=== PATIENT | female | born 1940 | race African-American/Black ===

== ENCOUNTER 2016-10-10 11:21 | Inpatient (IN) | payer OTHER ==
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
--- NOTE | ~2016-10-10 | EKG ---
PATIENT: WAN BUSTAMANTE UNIT #: [id number] Ventricular Rate: 104 BPM Atrial Rate: 105 BPM QRS Duration: 78 ms Q-T Interval: 338 ms QTC Calculation(Bezet): 444 ms Calculated R [place]: 26 degrees Calculated T [place]: 1 degrees Diagnosis Line: Atrial fibrillation with rapid ventricular Diagnosis Line: response Diagnosis Line: Nonspecific T wave abnormality Diagnosis Line: Abnormal ECG Diagnosis Line: When compared with ECG of 10-OCT-2016 10:55, Diagnosis Line: Minimal criteria for Inferior infarct are no Diagnosis Line: longer Present Diagnosis Line: T wave inversion no longer evident in Inferior Diagnosis Line: leads Diagnosis Line: Nonspecific T wave abnormality has replaced Diagnosis Line: inverted T waves in Lateral leads Diagnosis Line: Confirmed by DAY PHILLIPS MD ([id number]) on 10/16/2016 Diagnosis Line: 10:34:34 PM INTERPRETING MD: ALAN GAVIN
--- NOTE | ~2016-10-10 | EKG ---
PATIENT: WAN BUSTMAANTE UNIT #: [id number] Ventricular Rate: 124 BPM Atrial Rate: 138 BPM QRS Duration: 74 ms Q-T Interval: 296 ms QTC Calculation(Bezet): 425 ms Calculated R [place]: 34 degrees Calculated T [place]: -69 degrees Diagnosis Line: Poor data quality, interpretation may be Diagnosis Line: adversely affected Diagnosis Line: Atrial fibrillation with rapid ventricular Diagnosis Line: response Diagnosis Line: Low voltage QRS Diagnosis Line: Possible Lateral infarct , age undetermined Diagnosis Line: ST and T wave abnormality, consider anterior Diagnosis Line: ischemia Diagnosis Line: Abnormal ECG Diagnosis Line: When compared with ECG of 16-OCT-2016 05:49, Diagnosis Line: (unconfirmed) Diagnosis Line: Vent. rate has increased BY 42 BPM Diagnosis Line: Borderline criteria for Lateral infarct are now Diagnosis Line: Present Diagnosis Line: Confirmed by DAY PHILLIPS MD ([id number]) on 10/16/2016 Diagnosis Line: 11:42:36 PM INTERPRETING MD: ALAN GAVIN
--- NOTE | ~2016-10-10 | OR ---
Unit #: [id number] #: [id number] Patient: WAN BUSTAMANTE [id number] [address] [place], [place] [address] [id number] I MR#: [id number] NAME: WAN BUSTAMANTE ROOM: 575 Date of Procedure: 10/19/2016 Admission Date: 10/10/2016 Surgeon: Harley Crenshaw M.D. : 1940 Attending Physician: Harish Salas M.D. OPERATIVE REPORT PROCEDURES PERFORMED 1. Ultrasound-guided access of left common femoral artery. 2. Aortogram. 3. Right lower extremity angiogram second-order catheterization. 4. Percutaneous closure of left common femoral artery with Mynx device. INDICATIONS FOR PROCEDURE This is a 76-year-old female, who has had a nonhealing wound of her right great toe for a couple of weeks. There is some dry gangrene and tissue loss. She had preoperative ankle-brachial indices, which demonstrated her right ankle ZHEN was 0.39. We were asked by her primary service for evaluation for peripheral vascular disease. I talked to the patient about the risks and benefits of an angiogram. The risks include, but not limited to, contrast-induced nephropathy, access site bleeding, injury to blood vessels, and need for further procedures. The benefit of the procedure would be to evaluate her circulation, and if we can identify a treatable stenosis or occlusion, revascularize her leg so as to allow for adequate wound healing. She expressed understanding and elected to proceed. PREOPERATIVE DIAGNOSIS Right lower extremity atherosclerosis with gangrene. POSTOPERATIVE DIAGNOSIS Right lower extremity atherosclerosis with gangrene. ESTIMATED BLOOD LOSS 10 mL. FINDINGS 1. Patent bilateral renal arteries. 2. Infrarenal abdominal aortic aneurysm approximately 4.5 cm. 3. No significant iliac artery occlusion or stenosis. 4. Flush SFA occlusion on the right side, with narrow profunda artery proximally. There is distal SFA/above knee popliteal artery reconstitution, no significant popliteal disease, anterior tibial artery is not well visualized. 5. Tibioperoneal trunk is patent, however, approximately 80% stenosis, PT and peroneal arteries appear free of disease, and posterior tibial artery is the dominant runoff to the foot with lateral plantar runoff. Dorsalis pedis artery reconstitutes at the distal anterior tibial artery. Unit #: [id number] #: [id number] Patient: WAN BUSTAMANTE DESCRIPTION OF TECHNIQUE After informed consent was obtained, the patient was brought to the operating room table and placed in supine position. The patient's bilateral groins were prepped and draped in standard fashion. At this point in time, a time-out procedure was performed. Using ultrasound-guided access, identified the left femoral bifurcation, as well as the left common femoral artery. I confirmed the position with fluoroscopy. I then injected 1% lidocaine into the skin. I then accessed the left common femoral artery with a micropuncture needle using ultrasound guidance. I then advanced a micro Glidewire and confirmed my position under fluoroscopy. I then exchanged out my micro needle for a 4-Faroese micro-sheath catheter using Seldinger technique. I then advanced a Agile Groupson wire up into the aorta. I then exchanged out my 4-Faroese micro sheath catheter for a 5-Faroese sheath. I then advanced an Omni Flush catheter up into the level of L1 and L2, and shot a 20 mL/sec per 20 mL total aortogram. This demonstrated patent bilateral renal arteries, patent inferior mesenteric artery, and also detected of what appears to be a 4.4 cm infrarenal abdominal aortic aneurysm. There was no significant disease of the right iliac artery in terms of stenosis or occlusion. It did appear tortuous. I then went up and over the aortic bifurcation with a stiff angled Glidewire, and advance my Omni Flush catheter into the right external iliac artery, where it was engaged. I then performed a 4 mL/second for 40 mL total bolus keisha of the right lower extremity. This demonstrated that the right SFA was occluded at its origin with the femoral artery. The profunda artery was seen, however, there appeared to be a tight stenosis of its proximal aspect. The distal SFA/above knee popliteal artery reconstituted with no significant disease. There did appear to be a patent tibioperoneal trunk, but again what it seem to be 70% to 80% stenosis of the proximal aspect of the tibioperoneal trunk. The posterior tibial artery in the peroneal artery were free of disease. In the posterior tibial artery, there was a predominant runoff down to the foot, with lateral plantar runoff. The anterior tibial artery did not have brisk flow, though it did not appear occluded either. The dorsalis pedis artery reconstituted at the level of the ankle. To obtain better evaluation of the pedal outflow, I performed a magnified view in a 4 mL/second for 12 mL total bolus keisha of the right foot. This again confirmed that the posterior tibial artery with this plantar runoff as a predominant runoff to the foot, and reconstitution of the dorsalis pedis artery. There was good circulation to the forefoot and first toe. At this point, I felt like the patient would best benefit from operative procedure, and not endovascular intervention. The Omni Flush catheter was removed over a wire, I performed a left angled oblique femoral bifurcation angiogram, which demonstrated an adequate puncture for percutaneous closure. I then deployed a 5-Faroese Mynx device and held additional manual pressure for 5 minutes for adequate hemostasis. Total contrast used was 35 mL of Visipaque, fluoro time was 4.8 minutes. At the end of the case, all counts were correct and I was present for the entire duration of the procedure. Dictated by... John Dinh/jan Unit #: [id number] #: [id number] Patient: WAN BUSTAMANTE TD: 10/20/2016 03:05 JOB #: [id number] OPERATIVE REPORT Page 1 of 1 X X PROCEDURE OPERATIVE NOTE
--- NOTE | ~2016-10-10 | XA166 ---
[facility] A Service of [facility] RADIOLOGY TEXT RESULTS PATIENT: WAN BUSTAMANTE LOCATION: [facility] 575-01 : [birth year] UNIT #: [id number] AGE: [address]: Dante Cochran MD SEX: F ORDER DR: [id number] [facility] [address] [place], [place] [address] [id number] MR#: [id number] Acc #: [id number] NAME: WAN BUSTAMANTE : 1940 SEX: F STUDY DATE/TIME: 10/23/2016 13:24 UNIT: [facility] ROOM: [facility] STUDY DESCRIPTION: XA PICC Line Placement WO Port Attending Physician: Dante Cochran M.D. Ordering Physician: Dante Cochran M.D. Primary Care Physician: Generic Doctor Not In System MEDICAL IMAGING REPORT This report is preliminary unless electronic signature is present EXAM Left-sided PICC line under ultrasound and fluoroscopy HISTORY No venous access. PRE-PROCEDURE The procedure was explained to the patient and/or patient service center representative including risks, benefits, potential complications and potential for alternative forms of treatment. Informed consent was obtained, and prior to initiating the procedure a formal timeout procedure was performed. PROCEDURE Using full standard sterile barrier technique, including caps, gowns, gloves, masks, as well as sterile skin preparation and standard sterile draping, the left arm was prepped and draped in the usual fashion, and real-time sterile ultrasound guidance was used to localize an arm vein and to confirm vessel patency. A hard copy ultrasound image was recorded. After local anesthesia with 1% Xylocaine, the left brachial vein was punctured using real-time sterile ultrasound guidance, and an 0.018 guidewire was advanced into the superior vena cava, using fluoroscopic guidance. A 5-Cymraes dual-lumen PICC was then measured and deployed with the tip positioned in the superior vena cava. The position of the line was documented with a radiographic image. The line was secured in place with an adhesive dressing and an antibiotic patch was applied. Total fluoro time was 0.2 minutes. A single fluoroscopic spot image was obtained. Total exposure 6 mGy air kerma standard. IMPRESSION 1. Successful placement of a 5-Cymraes dual-lumen PowerPICC via the left arm under ultrasound and fluoroscopic guidance. The tip of the PICC is in good position in the superior vena cava. [facility] A Service of [facility] RADIOLOGY TEXT RESULTS PATIENT: WAN BUSTAMANTE LOCATION: [facility] 575-01 : 42 UNIT #: [id number] AGE: [address]: Dante Cochran MD SEX: F ORDER DR: 2. A single fluoroscopic spot image was obtained. Dictated by... Stanton Sifuentes M.D. THIS IS AN ELECTRONICALLY VERIFIED REPORT Stanton Sifuentes M.D. at 10/25/2016 2:20 PM ALAN/kirk TD: 10/24/2016 00:07 JOB #: [id number] MEDICAL IMAGING REPORT Page 1 of 1 COPY
--- NOTE | ~2016-10-10 | CO ---
Unit #: [id number] #: [id number] Patient: SANDHYA BUSTAMANTE [id number] [address] [address] [id number] Babar MR#: [id number] NAME: SANDHYA BUSTAMANTE ROOM: [facility] Age: 76 Sex: F Admission Date: 10/10/2016 : 1940 Attending Physician: Rosemarie Fernando M.D. Primary Care Physician: Jessica Doctor Not In System Consultation Date: 10/10/2016 CONSULTATION REPORT REASON FOR CONSULT Renal insufficiency, hyponatremia. Thank you very much for having us see this patient in consultation. Ms. Sandhya Bustamante is a 76-year-old female who presented to the hospital with four to five day weakness, cough x2 days, nonproductive, decreased appetite although no nausea, vomiting, diarrhea. The patient was noted to have an increased BUN and creatinine of 54 and 2.2 with a sodium of 125. Because of this, I was asked to see the patient. The patient states she has never had any problems with her kidneys that she knows of. 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 PAST MEDICAL HISTORY 1. History of atrial fibrillation, on chronic Coumadin. 2. History of hypertension. 3. History of diabetes mellitus. 4. History of hyperlipidemia. 5. History of CVA. MEDICATIONS Medicines currently ordered were: 1. Vancomycin. 2. Neurontin. 3. Zosyn. 4. Lopressor. 5. Iron pill. 6. Aspirin. At home, she was on: 1. Lipitor. 2. Insulin. 3. Neurontin. 4. Potassium pill. 5. Lisinopril. 6. Lasix. 7. Hydrochlorothiazide. REVIEW OF SYSTEMS As mentioned in the HPI. She denies any fevers, chills, visual problems, sinus problems. No hemoptysis. No neck pain, neck stiffness. No chest pain, chest heaviness, palpitations. No severe abdominal pain, nausea, vomiting, diarrhea. No urinary symptoms, starting, stopping or burning. No significant swelling. No recent seizures, strokes or skin rashes. Unit #: [id number] #: [id number] Patient: SANDHYA BUSTAMANTE FAMILY HISTORY Noncontributory. SOCIAL HISTORY She currently has no smoking, no alcohol intake. PHYSICAL EXAMINATION GENERAL: She is alert. VITAL SIGNS: Temperature is 98,4 pulse 94 to 166, blood pressure 81 to 122/50s to 90s. HEENT: She is normocephalic, atraumatic. Her pupils are equal, round, reactive to light. Her extraocular muscles are intact. Hearing appears to be normal. Mouth is clear. No erythema, no exudate. NECK: Supple. No JVD, no adenopathy. CARDIAC: She has an irregular rhythm without a rub. No S3 or S4. LUNGS: Clear bilaterally. No wheezes, rhonchi or rales. ABDOMEN: Bowel sounds positive. Nontender, soft. No masses felt. No hepato or organomegaly noted. EXTREMITIES: She has no lower extremity swelling. Her pulses are intact in upper and lower extremities. JOINTS: No joint pain or joint swelling. SKIN: No rashes. NEUROLOGICAL: Appears intact to both motor and sensory grossly. : Deferred. DIAGNOSTIC STUDIES LABORATORY DATA: She had a sodium of 125, potassium 2.9, chloride 79, bicarb is 27, BUN of 54, creatinine 2.2, glucose 378. Albumin is 3.2, alkaline phos. 169, TSH 198. INR is 1.5. Hemoglobin is 12.4, white count 13,100, platelets 304,000. IMAGING: Her chest x-ray showed mild cardiomegaly but no infiltrate. There was an 8 x 9 mm nodular density in the left lower lobe of the left lung. CT of the chest without contrast showed no acute findings. No infiltrates or areas. She was noted to have a 4 cm ascending thoracic aorta, apparently unchanged from 2010 study. ASSESSMENT AND PLAN 1. Renal failure: Assume acute renal failure. The patient was noted in March 2012 to have of 0.9. I don't have anything up until presentation here. Certainly her acute renal failure could be related to multiple etiologies. I don't have a urine on her at this time. Will check a urinalysis to see if she has any active urinary sediment. Will check a renal ultrasound to rule out obstruction or any other gross abnormalities. Agree with holding her Lasix, hydrochlorothiazide and her lisinopril at this time. Certainly, she could have just volume depletion from multiple diuretics, hyperglycemia with osmotic diuresis with normal saline. Will increase rate to 125 mL/hour. Will check again urine studies, renal ultrasound. Depending on what all this shows and how she does with fluid, depending on what further workup and treatment. 2. Hyponatremia: The patient appears to have probably a hypovolemic hyponatremia. Again, probably a combination of volume depletion with osmotic diuresis. Decrease p.o. intake as well as thiazide diuretic. Unit #: [id number] #: [id number] Patient: SANDHYA BUSTAMANTE Agree with IV fluids as mentioned above. Will check a.m. cortisol level. Will check urine osmolarity, random urine sodium and will follow. 3. Hyperglycemia per primary. 4. Possible sepsis, increased WBC: Workup and treatment per primary. Was started on vanc and Zosyn. Certainly, if her renal function doesn't improve or worsen, we may need to consider changing or vancomycin to another agent. For now, will not DC that. Dictated by... Nazario Kirk M.D. ALVIN/lucy TD: 10/12/2016 07:17 JOB #: [id number] CONSULTATION REPORT Page 1 of 1 X Werner Kirk MD X CONSULTATION REPORT
--- NOTE | ~2016-10-10 | US89 ---
[facility] A Service of [facility] & [facility] RADIOLOGY TEXT RESULTS PATIENT: WAN BUSTAMANTE LOCATION: [facility] 575-01 : 42 UNIT #: [id number] AGE: [address]: Harish Salas MD SEX: F ORDER DR: [id number] [facility] [address] [place], [place] [address] [id number] I MR#: [id number] #: [id number] NAME: WAN BUSTAMANTE : 1940 SEX: F STUDY DATE/TIME: 10/16/2016 9:54 UNIT: [facility] ROOM: [facility] STUDY DESCRIPTION: US Lower Ext Arterial Exam Attending Physician: Harish Salas M.D. Ordering Physician: Jf Montes M.D. Primary Care Physician: Generic Doctor Not In System MEDICAL IMAGING REPORT This report is preliminary unless electronic signature is present EXAM Ankle-brachial indices, 10/16/2016. HISTORY Wounds, bilateral lower extremities. FINDINGS The right brachial artery pressure is 160. The right dorsalis pedis pressure is 61 with an ankle-brachial index of 0.38. The right posterior tibial pressure is 62, with an ankle-brachial index of 0.39. The right digital pressure cannot be obtained because there is an open wound. The left brachial artery pressure is 137. The left dorsalis pedis pressure is 57, with an ankle-brachial index of 0.36. The left posterior tibial pressure is 57, with an ankle-brachial index of 0.36. The left digital pressure is 39, with a toe-brachial index of 0.24. Wave forms of the right and left posterior tibial wave forms are monophasic. Tracings of the right and left ankle are blunted, severely. IMPRESSION 1. The right ZHEN is 0.39, consistent with advanced arterial insufficiency. 2. The right TBI could not be obtained because of a wound, but waveforms and tracings are severely abnormal. 3. The left ZHEN is 0.36, consistent with advanced arterial insufficiency. 4. The left TBI is severely abnormal, and unreliable for adequate wound healing. Dictated by... [facility] A Service of [facility] RADIOLOGY TEXT RESULTS PATIENT: WAN BUSTAMANTE LOCATION: [facility] 575-01 : 42 UNIT #: [id number] AGE: [address]: Harish Salas MD SEX: F ORDER DR: Harley Crenshaw M.D. THIS IS AN ELECTRONICALLY VERIFIED REPORT Harley Crenshaw M.D. at 10/17/2016 2:21 PM Lalo TD: 10/16/2016 16:47 JOB #: [id number] MEDICAL IMAGING REPORT Page 1 of 1 COPY
--- NOTE | ~2016-10-10 | CR63 ---
[facility] A Service of [facility] RADIOLOGY TEXT RESULTS PATIENT: WAN BUSTAMANTE LOCATION: [facility] : 42 UNIT #: [id number] AGE: [address]: Gregor Corral MD SEX: F ORDER DR: [id number] [facility] [address] [place], [place] [address] [id number] I MR#: [id number] Acc #: [id number] NAME: WAN BUSTAMANTE : 1940 SEX: F STUDY DATE/TIME: 10/30/2016 11:40 UNIT: [facility] ROOM: [facility] STUDY DESCRIPTION: CR Chest 2 View Attending Physician: Dante Cochran M.D. Ordering Physician: Jason Mcclain M.D. Primary Care Physician: No Primary Care Physician MEDICAL IMAGING REPORT This report is preliminary unless electronic signature is present EXAM Two views chest, 10/30/2016. HISTORY Short of air with activity. Atrial fibrillation, weakness. Began 10/10. Diabetes. TECHNIQUE AP lordotic view of chest presented. COMPARISON STUDIES 10/10/2016 FINDINGS Left upper extremity approach PICC terminates in superior vena cava. Stable cardiac enlargement given lower lung volumes. Central bronchovascular crowding secondary to the lower lung volumes. Mildly increased peribronchial markings centrally. Nonspecific appearance which could be a reflection of mild central interstitial edema, reactive airway disease, or bronchitis. Weight should be given the clinical assessment. Linear densities at the bilateral lung bases favored to be atelectatic in nature given the lower lung volumes. There is no dense airspace disease. No definite pleural effusion or pneumothorax. No suspicious nodule. Marked degenerative change in the bilateral shoulders. Stable. Dictated by... Stanton De La Paz M.D. THIS IS AN ELECTRONICALLY VERIFIED REPORT [facility] A Service of [facility] RADIOLOGY TEXT RESULTS PATIENT: WAN BUSTAMANTE LOCATION: [facility] : 42 UNIT #: [id number] AGE: [address]: Gregor Corral MD SEX: F ORDER DR: Stanton De La Paz M.D. at 10/31/2016 2:37 PM SHAWN/elsie TD: 10/30/2016 16:46 JOB #: [id number] MEDICAL IMAGING REPORT Page 1 of 1 COPY
--- NOTE | ~2016-10-10 | EKG ---
PATIENT: WAN BUSTAMANTE UNIT #: [id number] Ventricular Rate: 149 BPM Atrial Rate: 144 BPM QRS Duration: 98 ms Q-T Interval: 260 ms QTC Calculation(Bezet): 409 ms Calculated R [place]: 40 degrees Calculated T [place]: -54 degrees Diagnosis Line: Atrial fibrillation with rapid ventricular Diagnosis Line: response Diagnosis Line: Cannot rule out Inferior infarct , age Diagnosis Line: undetermined Diagnosis Line: ST and T wave abnormality, consider lateral ischemia Diagnosis Line: Abnormal ECG Diagnosis Line: No previous ECGs available Diagnosis Line: Confirmed by ENIO COX MD ([id number]) on 10/10/2016 Diagnosis Line: 9:23:04 PM INTERPRETING MD: KENNY GAVIN
--- NOTE | ~2016-10-10 | DS ---
Unit #: [id number] #: [id number] Patient: WAN BUSTAMANTE [id number] [address] [place], [place] [address] [id number] I MR#: [id number] NAME: WAN BUSTAMANTE ROOM: [facility] Age: 76 Sex: F Admission Date: 10/10/2016 : 1940 Discharge Date: 11/01/2016 Attending Physician: Gregor Corral M.D. Primary Care Physician: Generic Doctor Not In System DISCHARGE SUMMARY ADDENDUM This is a continuation of a job that was accidentally disconnected and that job number was [id number]. PROCEDURES PERFORMED Upper GI endoscopy as well as push enteroscopy with biopsy. DIAGNOSTIC STUDIES LABORATORY: Most recent WBC 6.0, hemoglobin 8.6, hematocrit 27.1, platelet count 205,000 and PT 30.7, INR 2.8 and PT 37.5, INR 3.4, sodium 141, potassium 3.8, chloride 108, CO2 28, glucose 122, BUN 7, creatinine 1.1, calcium 8.3. Accu-Cheks over the past 24 hours are 123, 110, 170, 172, 135, 144. Blood culture collection date 10/23/16 x2, no growth after five days. Final blood cultures 10/10/16 x2, no growth after five days. Right toe wound culture collection date 10/10/16, final Staph aureus 4+. IMAGING: Most recent studies: On 10/30/16 bilateral lower extremity ZHEN. Impression: No arterial insufficiency of the right lower extremity based on ZHEN. Severe arterial insufficiency of the left lower extremity with diminished perfusion of the first toe consistent with small vessel disease. On 10/30/16 right lower extremity grafts venous ultrasound. Impression: Limited evaluation of right bqmtasa-mt-ndezui artery bypass where visualized segments appear widely patent with excellent runoff into the posterior tibial artery. On 10/30/16 two-view chest x-ray report. Impression: Left upper extremity approach PICC terminates in superior vena cava. Stable cardiac enlargement given lower lung volumes. Central bronchovascular crowding secondary to the lower lung volumes. Mildly increased peribronchial markings centrally. Nonspecific appearance which could be a reflection of mild central interstitial edema, reactive airway disease or bronchitis. Weight should be given the clinical assessment. Linear densities at the bilateral lung bases favored to be atelectatic in nature given the lower lung volumes. No dense airspace disease. No definite pleural effusion or pneumothorax. No suspicious nodule. Marked degenerative change in the bilateral shoulders, stable. On 10/24/16 aortic ultrasound. Impression: No significant aneurysmal dilatation of the abdominal aorta identified by ultrasound. Unit #: [id number] #: [id number] Patient: WAN BUSTAMANTE On 10/19/16 bilateral lower extremity vein mapping. Impression: Right great saphenous vein appears to be of adequate size for conduit from the upper proximal portion to the lower proximal portion. The left great saphenous vein does not appear to be of adequate size for a bypass conduit. On 10/16/16 ankle-brachial indices: The right ZHEN is 0.39, consistent with advanced arterial insufficiency. The right TBI could not be obtained because of a wound but waveforms and tracings are severely abnormal. The left ZHEN is 0.36, consistent with advanced arterial insufficiency. The left TBI is severely abnormal, and unreliable for adequate wound healing. On 10/10/16 bilateral renal ultrasound. Impression: Kidneys are normal in size and there is no hydronephrosis. On 10/10/16 CT of the chest without contrast. Impression: No acute findings. No pulmonary infiltrates. Aneurysmal dilatation of the ascending thoracic aorta measuring up to 4.4 cm but this is unchanged when compared to a study from November 20, 2009. Enlargement of the main pulmonary artery is also stable when compared to that study. Heterogeneous appearance to the thyroid gland; similar findings present on the prior study from 2009. On 10/10/16 three views of the right foot. 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 No acute findings. CONDITION ON DISCHARGE Stable. DISPOSITION [facility] where the patient has been accepted and a bed is available today. ALLERGIES No known medication allergies. DISCHARGE MEDICATIONS Per discharge medication reconciliation form. DIET Healthy heart consistent carbohydrate diet. HOSPITAL COURSE The patient is a 76-year-old -[place] female who presented to [facility] on the date of admission with complaint of weakness and no appetite. In the emergency department the patient's pulse was noted to be 166 with other vital signs stable. EKG showed afib with RVR and rate of 149 beats per minute. She was treated with IV metoprolol and admitted to the hospital for further evaluation and management of her condition. Please refer to the history and physical report for complete details. Patient was evaluated by Dr. Mcclain and Dr. Candelaria from [facility]. Patient was diagnosed with afib with RVR, likely permanent according to the patient's history. Patient also was noted to have a mildly elevated troponin of 0.05. Coumadin management throughout the hospital course was per the Cardiology service. Per review of the cardiology note the patient's [id number] score is 4 which they felt indicated the need for chronic anticoagulation if possible. Patient was Unit #: [id number] #: [id number] Patient: WAN BUSTAMANTE also noted to experience hypotension and received IV fluid boluses. Two-D echocardiogram was performed which revealed LV systolic function lower limit of normal with visually estimated EF of 50%, cweo-js-aocgfihx aortic stenosis, moderate aortic regurgitation, mild tricuspid regurgitation, right ventricular systolic pressure of 36 mmHg with no evidence of any pericardial effusion. Nephrology was consulted to assist in evaluation and management for acute kidney injury. The SWATHI was felt to likely be a result of secondary hypotension and hypovolemia. The patient's potassium was repleted and is stable at this time. Patient was noted to be anemic and Dr. Arnold Turpin from gastroenterology consulted to evaluate for the possibility of chronic GI blood loss. He felt that it would be prudent to proceed with upper GI endoscopy and push enteroscopy. Per review of [facility], patient underwent an upper GI endoscopy as well as push enteroscopy with biopsy. Postoperative diagnoses: Mild prepyloric antral erosive gastritis. Mild focal patchy erosive duodenitis. Rest of examination up to proximal jejunum was normal. Biopsies obtained from the antrum for CLOtest. Patient was evaluated by the registered radiation therapist with recommendation for healthy heart consistent carbohydrate diet as tolerated. The patient is tolerating food and fluids well at this time. On 10/10/16 the patient was noted to have total ulceration and separation of the nail plate with an open wound anteriorly with separation extending down to the phalanx and associated ischemic changes of the skin of the right distal toe which was consistent with early wet gangrene. Patient was evaluated by Dr. Montes. Patient underwent a vascular workup with results as dictated above. Drs. Aguilar and Flower evaluated the patient and she ultimately underwent revascularization procedure to the right lower extremity as well as amputation of the right first great toe. Patient has been evaluated with right lower extremity duplex venous Doppler and ZHEN/TBI studies yesterday with results as dictated above. Patient has been evaluated by Vascular Surgery and cleared for discharge today. She will need a followup with Vascular Surgery per recommendations of Dr. Aguilar. Patient has also exhibited anemia. She received a total of three units of packed red blood cells during the hospitalization. Most recent hemoglobin is as dictated above. She has no active bleeding and is stable from that standpoint today. She continues on chronic Coumadin therapy. Her INR is therapeutic at 3.4 today. Her Coumadin is being held today by Dr. Candelaria. She will need a CBC and PT/INR in the a.m. at rehab with results called to the physician at the facility for further Coumadin management orders. The patient has been hospitalized since 10/10/16 and although she has participated with physical therapy at intervals she has become debilitated. She has been working with physical therapy and occupational therapy as much as possible based on her physical condition and procedures. She is at a point where she will be able to participate in rehab services at [facility]. DISCHARGE MEDICATIONS 1. Acetaminophen 325 mg tab one p.o. q.6 h. p.r.n. mild pain or temperatures greater than 100.4. 2. Flonase 0.05% nasal spray two sprays nasally daily. 3. Neurontin 300 mg p.o. t.i.d. 4. Claritin 10 mg p.o. daily. 5. Lanoxin 0.125 mg p.o. at noon. 6. Lopressor 100 mg p.o. b.i.d. Unit #: [id number] #: [id number] Patient: WAN BUSTAMANTE 7. Colace 100 mg p.o. b.i.d. 8. Furosemide 40 mg p.o. b.i.d. 9. Low dose sliding scale NovoLog insulin protocol with Accu-Cheks per MD order per med rec. 10. Ferrous gluconate 324 mg p.o. daily. 11. Fatty acids/fish oil 1000 mg p.o. b.i.d. 12. Refresh ophthalmic solution one drop both eyes daily. 13. Aspirin 81 mg p.o. daily. 14. Percocet 5/325 mg tab one to two tabs p.o. q.4 h. p.r.n. moderate pain. Prescription written by Dr. Banda, #15 no refills. 15. Klor-Con 20 mEq p.o. daily. 16. Sildenafil citrate 20 mg tab one p.o. t.i.d. before meals. 17. Vitamin D2 50,000 units p.o. weekly. 18. Nafcillin 1 g IV q.6 h. Stop date 11/02/16 at [id number]. DISCHARGE INSTRUCTIONS 1. Patient is to follow up with Dr Candelaria as scheduled in the office on December 28, 2016 at 10:30 a.m. 2. Patient is to follow up with primary care physician five to seven days after discharge from rehab. 3. Patient is to follow up with Dr. Aguilar per his recommendations which will need to be clarified prior to discharge today. 4. PT/INR, CBC to be collected at rehab tomorrow with results called to the attending physician at the snf for further Coumadin management and PT/INR orders. Please note this patient had an extensive and complex hospital course. She was here from 10/10/16 until today. Please refer to the entire medical record for details of her care. Dictated by... Aminta Carey A.P.R.N. for John Buckner/edgar TD: 11/01/2016 15:38 JOB #: [id number] DISCHARGE SUMMARY Page 1 of 1 X Aminta Carey APRN X DISCHARGE SUMMARY
--- NOTE | ~2016-10-10 | CR72 ---
[facility] A Service of [facility] RADIOLOGY TEXT RESULTS PATIENT: WAN BUSTAMANTE LOCATION: [facility] 575-01 : 42 UNIT #: [id number] AGE: [address]: Rosemarie Fernando MD SEX: F ORDER DR: [id number] [facility] [address] [place], [place] [address] [id number] MR#: [id number] #: [id number] NAME: WAN BUSTAMANTE : 1940 SEX: F STUDY DATE/TIME: 10/10/2016 11:07 UNIT: [facility] ROOM: STUDY DESCRIPTION: CR Chest Single View Portable Attending Physician: Jf Pittman M.D. Ordering Physician: Jf Pittman M.D. Primary Care Physician: Generic Doctor Not In System MEDICAL IMAGING REPORT This report is preliminary unless electronic signature is present EXAM Portable chest x-ray 10/10/2016 HISTORY Short of air, 5-6 days duration. Weakness, diabetes. TECHNIQUE AP radiograph chest is presented COMPARISON 03/12/2011 FINDINGS The heart is mildly enlarged. Stable. Mildly tortuous descending thoracic aorta. Stable. The lungs are somewhat hyperinflated. Please correlate with any known history of underlying chronic airway disease. There is no indication of pneumonia or edema. No pleural effusion or pneumothorax. 8-9 mm nodular density superimposed over the left lower lung zone along the left heart border. No corresponding finding on the prior plain radiograph or prior CT examination in 2009. This is not in the anticipated location of nipple shadow artifact. Its exact etiology is unclear. It is possible this represents an area of atelectasis. Neoplastic pulmonary nodule is to be excluded. CT examination recommended. Preferably with intravascular contrast if the patient is a candidate. Degenerative changes in the spine and shoulders. Shoulder degenerative changes significantly progressed in the interval from 2010. There is no acute-appearing bony abnormality. Dictated by... Stanton De La Paz M.D. [facility] A Service of [facility] RADIOLOGY TEXT RESULTS PATIENT: WAN BUSTAMANTE LOCATION: [facility] [place] [facility] 575-01 : 42 UNIT #: [id number] AGE: [address]: Rosemarie Fernando MD SEX: F ORDER DR: THIS IS AN ELECTRONICALLY VERIFIED REPORT Stanton De La Paz M.D. at 10/11/2016 5:56 PM SHAWN/kirk TD: 10/10/2016 13:04 JOB #: [id number] MEDICAL IMAGING REPORT Page 1 of 1 COPY
--- NOTE | ~2016-10-10 | ST ---
Unit #: [id number] #: [id number] Patient: WAN BUSTAMANTE [id number] [facility]. [place], [place] [address] [id number] I MR#: [id number] NAME: WAN BUSTAMANTE : 1940 SEX: F STUDY DATE/TIME: 10/13/2016 UNIT: [facility] ROOM: 575 STUDY DESCRIPTION: Lexiscan stress test Attending Physician: Harish Salas M.D. Primary Care Physician: Generic Doctor Not In System CARDIOLOGY REPORT PROCEDURE PERFORMED Lexiscan Cardiolite stress test. REPORT Baseline EKG - Atrial fibrillation with ventricular rate 96 beats per minute, questionable Q wave in V1. Lexiscan is a 4-minute test with Lexiscan being injected within the first minute, followed by Cardiolite. FINDINGS 1. EKG during the test was equivocal to baseline. No acute ischemic changes. 2. The patient had no complaints of chest pain, palpitations or dizziness. Had increased shortness of breath and fatigue, which resolved in recovery phase. 3. Maximum heart rate response was 144 beats per minute with a maximum blood pressure response of 130/80 mmHg. 4. Cardiolite was injected after Lexiscan within the first minute of the test. Radionuclide tests pending. Please correlate with nuclear images. Dictated by... Kayaln Dejesus A.P.R.N. for John Larkin/nas TD: 10/13/2016 11:44 JOB #: [id number] CARDIOLOGY REPORT Page 1 of 1 X Kaylan Dejesus APRN CARDIOLOGY REPORT
--- NOTE | ~2016-10-10 | OR ---
Unit #: [id number] #: [id number] Patient: WAN BUSTAMANTE [id number] [place], [place] [address] [id number] I MR#: [id number] NAME: WAN BUSTAMANTE ROOM: [facility] Date of Procedure: 10/15/2016 Admission Date: 10/10/2016 Surgeon: Arnold Turpin M.D. : 1940 Attending Physician: Harish Salas M.D. OPERATIVE REPORT ADDITIONAL ATTENDING PHYSICIAN Jamey Sands, and Harish Salas M.D. PREOPERATIVE DIAGNOSES Anemia most likely of chronic iron deficiency or gastrointestinal blood loss or anemia of chronic disease. PROCEDURES PERFORMED Upper gastrointestinal endoscopy as well as push enteroscopy with biopsy. POSTOPERATIVE DIAGNOSES 1. The patient mild prepyloric antral erosive gastritis. 2. There was mild focal patchy erosive duodenitis. 3. Rest of the examination up to proximal jejunum was normal. Biopsies obtained from the antrum for CLOtest. RECOMMENDATIONS The patient does not have any potential source of blood loss in the upper gastrointestinal tract. Therefore, there is no contraindication use of anticoagulation. SEDATION USED MAC. DESCRIPTION OF PROCEDURE Following detailed explanation of potential risks and complications of an upper endoscopy, namely perforation, bleeding, and complications related to sedation, the patient was brought to GI lab and laid in the left lateral decubitus position. Lubricated tip of the Olympus video upper endoscope was passed through bite block into the proximal esophagus under direct vision. The entire esophageal mucosa was examined and appeared normal. Z-line was nicely demarcated, there being no esophagitis or hiatus hernia. The scope was then advanced into the gastric cavity and the latter was insufflated. Mucosa of the fundus, body, and antrum was examined, the patient was noted to have mild to moderate prepyloric antral erosive gastritis. Pylorus was intubated with visualization of the duodenal bulb. The latter was noted to have mild focal patchy erosive duodenitis. Second and third part of duodenum were normal. Upon withdrawal and retroflexion, incisura, cardia, and greater curve examined and biopsy obtained from the antrum for CLOtest. The scope was then withdrawn in the distal esophagus. The entire esophageal mucosa was examined all the way up to pharynx. No additional findings noted. Unit #: [id number] #: [id number] Patient: WAN BUSTAMANTE A pediatric colonoscope was used for push enteroscopy. At this time, the scope was advanced up to proximal jejunum. Again, no additional abnormalities seen. The patient did not have any angiodysplasias or AVMs throughout the entire proximal small bowel examined. The scope was thus withdrawn and the patient returned to the recovery area. She tolerated the procedure without any postprocedure complications. Dictated by... John Rosas/ajn TD: 10/16/2016 02:25 JOB #: [id number] CC: John Humphrey M.D. Ranjhan Khan Gopang, M.D. Osawaru Omoruyi, M.D. OPERATIVE REPORT Page 1 of 1 X Arnold Turpin MD X PROCEDURE OPERATIVE NOTE
--- NOTE | ~2016-10-10 | CO ---
Unit #: [id number] #: [id number] Patient: WAN SERVIN [id number] [address] [place], [place] [address] [id number] I MR#: [id number] NAME: WAN SERVIN ROOM: [facility] Age: 76 Sex: F Admission Date: 10/10/2016 : 1940 Attending Physician: Harish Salas M.D. Primary Care Physician: Jessica Doctor Not In System Consultation Date: 10/17/2016 CONSULTATION REPORT REASON FOR CONSULTATION Peripheral arterial disease. Ms. Servin is a 76-year-old -[place]er female with a history of wound to her great toe. She does not remember a precipitating cause, however, voiced her wound has been present for about three weeks. She denies any claudication symptoms. She lives at home, walks with a walker. She is able to walk between one to two blocks before she has to stop walking. She also has a history of atrial fibrillation and CVA in 2001 or 2002 without residual. Her kidney function is now normal. She denies any shortness of air. Her toe is painful but her pain is controlled. She was recently seen by surgery who recommends likely great toe amputation and has requested vascular workup due to severe peripheral arterial disease prior to. She was found to have an ZHEN on the right of 0.39 and left of 0.36 suggesting severe ischemia. PAST MEDICAL HISTORY 1. Permanent atrial fibrillation, fairly well controlled, not currently on anticoagulation. 2. History of CVA without residual deficit. 3. Diabetes mellitus. 4. Acute renal insufficiency, resolved. 5. Hypotension, resolved. 6. History of anemia. 7. Severe pulmonary hypertension and mild aortic stenosis per cardiac catheterization. 8. MSSA infection of the great toe. PAST SURGICAL HISTORY Colonoscopy. REVIEW OF SYSTEMS CONSTITUTIONAL: Negative. HEENT: Positive for decreased vision and wearing glasses. PULMONARY: Negative for shortness of breath. CARDIAC: Negative for chest pain and lower extremity edema. GI: Negative. : Negative. MUSCULOSKELETAL: Negative. NEUROLOGICAL: Positive for history of CVA without residual. VASCULAR: Positive for nonhealing wound to the great toe. SKIN: Positive for wound to the great toe. SOCIAL HISTORY Unit #: [id number] #: [id number] Patient: WAN SERVIN She is a nonsmoker. She previously smoked but quit around 1994. She does not drink alcohol, she does not use drugs. She lives at home. FAMILY HISTORY Mother is . She had a history heart disease. Father is , had a history of cancer. Type is unknown. She is not on anticoagulation for her A-fib. MEDICATION 1. Lopressor 25 p.o. b.i.d. 2. Zofran 4 mg p.r.n. 3. Percocet p.r.n. 4. NovoLog. 5. Vancomycin. 6. Neurontin 300 p.o. t.i.d. 7. Ferrous gluconate 324. 8. Zosyn 3.375 IV. 9. Claritin. 10. Flonase. 11. Aspirin 81 mg. 12. Lipitor 80 mg daily. ALLERGIES No known drug allergies. PHYSICAL ASSESSMENT VITAL SIGNS: She has a height of 157 cm, weight of 78.4 kg. EYES: There is no injected conjunctivae, no xanthelasma. EARS, NOSE, MOUTH AND THROAT: She has moist mucous membranes without pallor or cyanosis. Teeth in good repair. NECK: There is no JVD. LUNGS: Clear without use of accessory muscles or intercostal retractions. HEART: S1 and S2. Irregular rate and rhythm with rate control. ABDOMEN: Soft, mildly obese without hepatosplenomegaly. VASCULAR: She has no cervical bruits. Her radial pulses are palpable bilaterally. There is no pulsatile abdominal mass. Femoral pulses are easily palpable. Popliteal, dorsalis pedis and posterior tibial pulses are not palpable on either side. SKIN: There is no hemosiderin deposition, stasis dermatitis or lipodermatosclerosis. She has open wound to the great toe with gangrenous tip. No wounds to the left lower extremity. MUSCULOSKELETAL: She moves extremities without atrophy or abnormal movements. NEURO: She is alert, oriented. Good historian without focal neuro deficits. DIAGNOSTIC STUDIES LABORATORY: She has a BUN of 10, creatinine of GFR of 64, sodium is 139, potassium is 4.3. PT is 11.3, INR is 1.1, PTT is 28. Hemoglobin 8, hematocrit is 25.3, white blood cells are 7.6 and platelets are 190. INVESTIGATIONS: She had an ZHEN completed with an ZHEN on the right of 0.39 and left of 0.36 indicating a severe ischemia to the bilateral lower extremities. IMPRESSION 1. Severe peripheral arterial disease bilaterally with gangrene of the right great toe: Likely needs amputation. Unit #: [id number] #: [id number] Patient: WAN SERVIN 2. Diabetes mellitus. 3. Atrial fibrillation. 4. History of cerebrovascular accident without residuals. 5. History of acute renal insufficiency, now stable with a creatinine of 1 and GFR of 65. RECOMMENDATIONS Will need arteriogram. Risks and benefits were discussed. Risk of infection, risk of bleeding, risk of damage to vessels and risk of clot dislodgement were discussed. She is not on anticoagulation with normal coagulative factors. Dictated by... Gilda VelázquezPPhilippeRPhilippeNPhilippe for Harley Crenshaw M.D. Aga TD: 10/17/2016 10:19 JOB #: [id number] CONSULTATION REPORT Page 1 of 1 X X CONSULTATION REPORT
--- NOTE | ~2016-10-10 | US83 ---
[facility] A Service of [facility] & [facility] RADIOLOGY TEXT RESULTS PATIENT: WAN BUSTAMANTE LOCATION: [facility] 575-01 : [birth year] UNIT #: [id number] AGE: [address]: Gregor Corral MD SEX: F ORDER DR: [id number] [facility] [address] [place], [place] [address] [id number] I MR#: [id number] Acc #: [id number] NAME: WAN BUSTAMANTE : 1940 SEX: F STUDY DATE/TIME: 10/30/2016 12:02 UNIT: [facility] ROOM: [facility] STUDY DESCRIPTION: US LE [employer] Attending Physician: Dante Cochran M.D. Ordering Physician: Dante Cochran M.D. Primary Care Physician: Generic Doctor Not In System MEDICAL IMAGING REPORT This report is preliminary unless electronic signature is present EXAM Right lower extremity grafts venous ultrasound, 10/30/2016. HISTORY Recent right femoral to tibial artery bypass exam. FINDINGS The right common femoral artery appears widely patent, with velocity of 168 cm/sec. The profunda femoris artery appears widely patent with a velocity of 103 cm/sec. Kykspop-gl-eepulgaup artery bypass graft is not well seen throughout this case, but visualized segments in the calf level appear to be widely patent with velocity of 189 cm/sec. The posterior tibial artery at the ankle is widely patent with a velocity of 74 cm/sec. There are fluid collections within the leg at the thigh and knee, consistent with recent surgery and likely hematoma or seroma. There is minimal flow noted through the superficial femoral artery and popliteal artery, while the popliteal artery wave form appears to be intact with a velocity of 86 cm/sec. IMPRESSION Limited evaluation of right kbrskps-js-barash artery bypass, where visualized segments appear widely patent with excellent runoff into the posterior tibial artery. Dictated by... Carmenza Aguilar M.D. THIS IS AN ELECTRONICALLY VERIFIED REPORT Carmenza Aguilar M.D. at 11/07/2016 11:49 AM FPN/georges [facility]. [facility] A Service of [facility] & [facility] RADIOLOGY TEXT RESULTS PATIENT: WAN BUSTAMANTE LOCATION: [facility] 575-01 : 42 UNIT #: [id number] AGE: [address]: Gregor Corral MD SEX: F ORDER DR: TD: 10/30/2016 15:07 JOB #: [id number] MEDICAL IMAGING REPORT Page 1 of 1 COPY
--- NOTE | ~2016-10-10 | ST ---
Unit #: [id number] #: [id number] Patient: WAN BUSTAMANTE [id number] [facility]. [place], [place] [address] [id number] I MR#: [id number] NAME: WAN BUSTAMANTE : 1940 SEX: F STUDY DATE/TIME: UNIT: [facility] ROOM: 575 STUDY DESCRIPTION: Stress nuclear test Attending Physician: Harish Salas M.D. Primary Care Physician: Generic Doctor Not In System CARDIOLOGY REPORT Patient's baseline heart rate was 93 BPM, blood pressure 130/61. The patient received Lexiscan infusion as per protocol. At peak infusion the patient's heart rate was 130, blood pressure 121/65. The patient's baseline EKG showing AFib with a nonspecific ST-T changes. During Lexiscan infusion recovery, no further ST-T changes. Patient also received 9.86 mCi of Cardiolite at rest and 31.1 mCi of Cardiolite during stress. Both sets were compared. The patient shows a full thickness small apical defect in stress images. No other defect was noted. The patient also has gated SPECT scan done, which showed normal LV size and function. No wall motion abnormality detected. Ejection fraction 51%. INTERPRETATION OF THE TEST 1. EKG part of the test negative for Lexiscan induced ischemia. 2. Nuclear part of the test showing a small apical ischemia. 3. Gated SPECT scan shows normal left ventricular size and function. Dictated by... John Larkin/fady TD: 10/13/2016 16:05 JOB #: [id number] CARDIOLOGY REPORT Page 1 of 1 X Jovani Nixon MD CARDIOLOGY REPORT
--- NOTE | ~2016-10-10 | US146 ---
[facility] A Service of [facility] & [facility] RADIOLOGY TEXT RESULTS PATIENT: WAN BUSTAMANTE LOCATION: [facility] 575-01 : 42 UNIT #: [id number] AGE: [address]: Dante Cochran MD SEX: F ORDER DR: [id number] [facility] [address] [place], [place] [address] [id number] I MR#: [id number] Acc #: [id number] NAME: WAN BUSTAMANTE : 1940 SEX: F STUDY DATE/TIME: 10/19/2016 12:34 UNIT: [facility] ROOM: [facility] STUDY DESCRIPTION: US Vein Map Hemodial Access Attending Physician: Harish Salas M.D. Ordering Physician: [facility] Primary Care Physician: Generic Doctor Not In System MEDICAL IMAGING REPORT This report is preliminary unless electronic signature is present EXAM Bilateral lower extremity vein mapping DATE OF EXAMINATION 10/19/2016 HISTORY Preop for bypass. FINDINGS The right great saphenous vein has the following size measurements in mm: Upper proximal 6.1, mid 3.3, distal 2.5, at knee 2.6, lower proximal 2.4, mid 1.5, distal 1.4 mm. The right small saphenous vein is not visualized due to edema. The left great saphenous vein has the following size measurements in mm: Upper proximal 4.0, mid 2.4, distal 1.8, at knee 1.7, lower proximal 1.5, mid 1.1, distal 1.1. The left small saphenous vein is not visualized at its proximal aspect, it measures 2.6 mm at its mid aspect, and 1.5 mm at its distal aspect. IMPRESSION The right great saphenous vein appears to be of adequate size for conduit from the upper proximal portion to the lower proximal portion. The left great saphenous vein does not appear to be of adequate size for a bypass conduit. Dictated by... Harley Crenshaw M.D. THIS IS AN ELECTRONICALLY VERIFIED REPORT Harley Crenshaw M.D. at 10/25/2016 5:05 PM [facility] A Service of [facility] & [facility] RADIOLOGY TEXT RESULTS PATIENT: WAN BUSTAMANTE LOCATION: [facility] 575-01 : [birth year] UNIT #: [id number] AGE: [address]: Dante Cochran MD SEX: F ORDER DR: Pari TD: 10/19/2016 15:35 JOB #: [id number] MEDICAL IMAGING REPORT Page 1 of 1 COPY
--- NOTE | ~2016-10-10 | DS ---
Unit #: [id number] #: [id number] Patient: WAN BUSTAMANTE [id number] [address] [place], [place] [address] [id number] I MR#: [id number] NAME: WAN BUSTAMANTE ROOM: [facility] Age: 76 Sex: F Admission Date: 10/10/2016 : 1940 Discharge Date: 11/01/2016 Attending Physician: Gregor Corral M.D. Primary Care Physician: Generic Doctor Not In System DISCHARGE SUMMARY ADMISSION DIAGNOSES 1. Atrial fibrillation with RVR. 2. Hyponatremia. 3. Hypokalemia. 4. Acute kidney injury. 5. Diabetic toe infection. 6. Lung nodule. 7. Uncontrolled diabetes. 8. Chronic anticoagulation. 9. Hypertension. 10. Hyperlipidemia. 11. History of CVA with no residual. DISCHARGE DIAGNOSES 1. Atrial fibrillation with RVR, rate controlled. 2. Hyponatremia, stable. 3. Hypokalemia, resolved. 4. Acute kidney injury, resolved. 5. Diabetic toe infection, status post first great toe amputation and status post right fem-peroneal bypass graft. 6. Lung nodule. 7. Diabetes, better controlled. 8. Chronic anticoagulation with Coumadin. 9. Hypertension, stable. 10. Hyperlipidemia. 11. History of CVA with no residual. 12. Debility secondary to extended hospital stay. CONSULTANTS Doc Kirk M.D., nephrology. Tali Grider M.D., endocrinology. Jason Mcclain M.D., cardiology. Arnold Turpin M.D., gastroenterology. Jf Montes M.D., general surgery. Harley Crenshaw M.D., vascular surgery. PROCEDURES PERFORMED 10/19/2016, ultrasound-guided access of left common femoral artery, aortogram, right lower extremity angiogram second order catheterization, percutaneous closure of left common femoral artery with Minx device. 10/22/2016, right femoral endarterectomy with profundoplasty, right femoral to tibial peroneal trunk bypass with(1) graft. Unit #: [id number] #: [id number] Patient: WAN BUSTAMANTE 10/26/2016, right first toe amputation proximal phalanx. DICTATION STOPPED Dictated by... Aminta Carey A.P.R.N. RLC/gz TD: 11/01/2016 15:31 JOB #: [id number] DISCHARGE SUMMARY Page 1 of 1 X Aminta Carey APRN X DISCHARGE SUMMARY
--- NOTE | ~2016-10-10 | FU ---
[facility] Nutrition Therapy DATE: 10/31/16 Patient: WAN BUSTAMANTE Physician: BERTIN Address: [address] [place] [address] Room/Bed: [address] [place] [address], Zip: [place] [address] Admit Date: 10/10/16 Date of : [birth year] Height: 5 2 Weight: 205 93.4 NUTRITION MONITORING/FOLLOW-UP: Reason: PT SEEN FOR FOLLOW-UP DX: A FIB Anthropometrics: 5'2", WT: 205# (93 KG), BMI: 37.5 -ADMIT WEIGHT: 160#? Labs: GLU: 127, BUN: 8, CA+:8.0, ALB: 1.8 (10/23/16), PHOS: 2.1 (10/14/16), A1c: 14.8 (REFLECTS POOR GLUCOSE MANAGEMENT) Meds: FUROSEMIDE, COLACE, NOVOLOG, FISH OIL, ZOFRAN, KCL, FERROUS GLUCONATE I&O's: 1780/2801, 1 BM NOTED Skin: (R) GREAT TOE DM ULCER Assessment: CHART REVIEWED AND EVENTS NOTED. PT SEEN FOR FOLLOW-UP. PT REPORT FAIR/GOOD PO INTAKE AND APPETITE, NO C/O N/V/D. THIS RD PROVIDED WRITTEN AND VERBAL CC DIET EDUCATION. PT DEMONSTRATED UNDERSTANDING OF THE TOPIC. PT REPORTED NO DIET QUESTIONS AT THIS TIME. RD TO REMAIN AVAILABLE. OF NOTE, PT "WANTS TO GO HOME". Dx: ALTERED NUTRIENT UTILIZATION R/T PMH AEB NEED FOR THERAPEUTIC DIET ORDER, A1c OF 14.8, ELEVATED BLOOD SUGAR LEVELS. Intervention: 1. CC DIET 2. WRITTEN/VERBAL CC DIET EDUCATION Monitoring, Evaluation and Goals: GOALS MET 1. ORAL INTAKE; CONSUME ~80-100% MEALS W/NO C/O N/V/D 2. LABS; WNL: GLU 3. WEIGHTS; PROMOTE GRADUAL WEIGHT LOSS MONITOR: -PO INTAKE/APPETITE -WEIGHTS -LABS Recommendations: 1. CONTINUE TO ENCOURAGE COMPLIANCE OF CURRENT DIET ORDER RD WILL F/U PER PROTOCOL PT IS MILDLY COMPROMISED [facility] Nutrition Therapy DATE: 10/31/16 Patient: WAN BUSTAMANTE Physician: BERTIN Address: [address] [place] [address] Room/Bed: [address] [place] [address], Zip: [place] [address] Admit Date: 10/10/16 Date of : [birth year] Height: 5 2 Weight: 205 93.4 Respectfully, JOVANI BAKER MS, RD, LD [facility] cc: client file
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
--- NOTE | ~2016-10-10 | EKG ---
PATIENT: WAN BUSTAMANTE UNIT #: [id number] Ventricular Rate: 82 BPM Atrial Rate: 97 BPM QRS Duration: 78 ms Q-T Interval: 386 ms QTC Calculation(Bezet): 450 ms Calculated R [place]: 35 degrees Calculated T [place]: -17 degrees Diagnosis Line: Atrial fibrillation Diagnosis Line: Low voltage QRS Diagnosis Line: T wave abnormality, consider anterior ischemia or Diagnosis Line: digitalis effect Diagnosis Line: Abnormal ECG Diagnosis Line: When compared with ECG of 13-OCT-2016 06:58, Diagnosis Line: (unconfirmed) Diagnosis Line: T wave inversion now evident in Anterior leads Diagnosis Line: Confirmed by DAY PHILLIPS MD ([id number]) on 10/16/2016 Diagnosis Line: 11:30:44 PM INTERPRETING MD: ALAN GAVIN
--- NOTE | ~2016-10-10 | CO ---
Unit #: [id number] #: [id number] Patient: WAN BUSTAMANTE [id number] [address] [address] [id number] I MR#: [id number] NAME: WAN BUSTAMANTE ROOM: 575 Age: 76 Sex: F Admission Date: 10/10/2016 : 1940 Attending Physician: Rosemarie Fernando M.D. Primary Care Physician: Generic Doctor Not In System CONSULTATION REPORT REASON FOR CONSULTATION Low cortisol level. HISTORY OF PRESENT ILLNESS This is a 76-year-old black female who has a history of type 2 diabetes mellitus, atrial fibrillation, chronic anticoagulation, hypertension and CVA. She presented to the emergency room for generalized weakness and loss of appetite. On arrival in the emergency room she was found to be in atrial fibrillation with rapid ventricular rate. She was also hypotensive and in acute kidney injury with a creatinine of 2.2. Her serum cortisol level was 8. I have been asked to see the patient for further evaluation for possible adrenal insufficiency. PAST MEDICAL HISTORY 1. Atrial fibrillation with chronic anticoagulation. 2. CVA. 3. Hypertension. 4. Type 2 diabetes mellitus. 5. Hyperlipidemia. PAST SURGICAL HISTORY 1. Colonoscopy. 2. Cardiac catheterization in the past. REVIEW OF SYSTEMS Ten point review of systems was completed. Please see history of present illness. The patient denies any recent weight loss. No nausea or vomiting or diarrhea, but does report loss of appetite. Some shortness of air and palpitations. Otherwise unremarkable. PHYSICAL EXAMINATION GENERAL: She is lying comfortably, in no acute respiratory distress. VITALS: Temperature 98.8, pulse 84, respiratory rate 18, blood pressure 110/40. HEENT: Extraocular muscles intact. Pupils equal and reactive to light. NECK: Supple. CHEST: Good air entry. HEART: Regular rhythm. Irregular rhythm. No murmurs. ABDOMEN: Benign. Nontender. No guarding or rigidity noted. EXTREMITIES: No edema or ulcers. DIAGNOSTIC STUDIES LABORATORY: Reviewed. Creatinine 1.5, potassium 3.2, A1c 14.8, cortisol 8. Unit #: [id number] #: [id number] Patient: WAN BUSTAMANTE ASSESSMENT 1. Hyponatremia. 2. Hypotension. 3. Rule out adrenal insufficiency. 4. Acute kidney injury. PLAN Will rule out the possibility of adrenal insufficiency. Check repeat serum cortisol level. Check atrial stimulation test. The patient will be given cosyntropin 0.25 mg IV 1 dose and serum cortisol level will be rechecked in 30 and 60 minutes. Will follow the results and further treatment will depend upon the results. Dictated by... John Dale/danni TD: 10/12/2016 08:16 JOB #: [id number] CONSULTATION REPORT Page 1 of 1 X Tali Grider MD X CONSULTATION REPORT
--- NOTE | ~2016-10-10 | US11 ---
[facility] A Service of [facility] RADIOLOGY TEXT RESULTS PATIENT: WAN BUSTAMANTE LOCATION: [facility] 575-01 : 42 UNIT #: [id number] AGE: [address]: Dante Cochran MD SEX: F ORDER DR: [id number] [facility] [address] [place], [place] [address] [id number] I MR#: [id number] Acc #: [id number] NAME: WAN BUSTAMANTE : 1940 SEX: F STUDY DATE/TIME: 10/24/2016 19:44 UNIT: [facility] ROOM: [facility] STUDY DESCRIPTION: US Aorta Duplex Complete Attending Physician: Dante Cochran M.D. Ordering Physician: Dante Cochran M.D. MEDICAL IMAGING REPORT This report is preliminary unless electronic signature is present EXAM Aortic ultrasound HISTORY Evaluate for AAA. FINDINGS 2-D and Doppler evaluation of the abdominal aorta was performed. The proximal aorta measures 2.6 x 2 cm in greatest transverse dimensions. The mid abdominal aorta measures 2 x 1.9 cm in greatest transverse dimensions and the distal aorta measures 1.9 x 1.6 cm in greatest transverse dimensions. IMPRESSION No significant aneurysmal dilatation of the abdominal aorta identified by ultrasound. Dictated by... Jayna Eddy M.D. THIS IS AN ELECTRONICALLY VERIFIED REPORT Jayna Eddy M.D. at 10/25/2016 2:03 PM DIMITRY/wander TD: 10/24/2016 22:13 JOB #: [id number] MEDICAL IMAGING REPORT Page 1 of 1 COPY
--- NOTE | ~2016-10-10 | OR ---
Unit #: [id number] #: [id number] Patient: WAN BUSTAMANTE [id number] [address] [facility]. [place], [place] [address] [id number] Babar MR#: [id number] NAME: WAN BUSTAMANTE ROOM: 575 Date of Procedure: 10/22/2016 Admission Date: 10/10/2016 Surgeon: Harley Crenshaw M.D. : 1940 Attending Physician: Dante Cochran M.D. OPERATIVE REPORT PROCEDURE PERFORMED 1. Right femoral endarterectomy with profundoplasty. 2. Right femoral to tibioperoneal trunk bypass with Propaten graft. INDICATIONS FOR THE PROCEDURE This is a 76-year-old female, who was admitted to the hospital and noted to have a right first toe nonhealing wound. Cultures on 10/10/2016 that grown back MSSA, and she is currently on nafcillin. She had ABIs performed that demonstrated her ABIs were 0.36 bilaterally, with flattened digital waveforms. 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 I had talked to the patient about doing a bypass procedure to improve her circulation to her foot, so she would ultimately heal a first toe amputation. I had talked to her about this for several days, and initially she appeared understanding and agreed with the plan. In the preoperative area, she expressed some confusion and felt like I was only going to amputate the toe. Where I again readdressed the situation, telling her that she would likely require toe amputation, and would not heal the amputation without revascularization. She finally expressed understanding, and elected to proceed with the operation. I talked to her about the risks and benefits of the operation. The risks of the operation include, but are not limited to, heart attack, stroke, bleeding, injury to the blood vessel, nerve injury, wound infection, graft infection, graft thrombosis, inability to heal the wound. The benefits of the operation would obviously be to improve her circulation to heal an amputation of her first toe. ASSISTANTS 1. Carmenza Aguilar M.D. 2. Luis Nye CSA. ESTIMATED BLOOD LOSS 150 mL. FINDINGS 1. Common femoral artery stenosis, with soft plaque, noncalcified, extending into 2 profunda arteries. 2. Relatively disease free and soft tibioperoneal trunk, as well as Unit #: [id number] #: [id number] Patient: WAN BUSTAMANTE posterior tibial artery. DESCRIPTION OF PROCEDURE After informed consent was obtained, the patient was brought to the operating room table and placed in supine position. The patient's right foot was prepped with Betadine, and the rest of the leg was prepped and draped in circumferential fashion with chlorhexidine. The patient's right leg was then draped in standard fashion. At this point, a time-out procedure was performed. Dr. Aguilar performed the femoral artery dissection portion. We made a vertical incision at the groin, dissected down through the subcutaneous tissue, entering the fascial sheath and identified the femoral vessels. The common femoral artery was identified and circumferentially dissected proximally and distally. Vessel loop control was obtained at the common femoral artery. There were 2 profunda arteries, one that came out roughly at 5 o'clock, and one came out more posteriorly at 4 o'clock, vessel loop control was obtained at these profunda arteries. The superficial femoral artery was also identified, felt heavily calcified, and circumferential control was also obtained. I made a below-knee popliteal incision approximately 1 fingerbreadth below the edge of the tibia, dissected through the subcutaneous tissue and divided the fascia. With retractors into the empty popliteal space below the knee, it came upon the popliteal vein. There was a lot of soft tissues edema that was noted. With mobilization of the popliteal vein, I was able to identify the popliteal artery. I then takedown a bit of the soleus muscle off the edge of the tibia to get better visualization of the tibioperoneal trunk. Ultimately, I identified 2 crossing veins, and these were ligated with 3-0 silk ligatures. I then identified the anterior tibial artery, as well as the tibioperoneal trunk, and the posterior tibial artery and peroneal artery. The tibioperoneal trunk crossed underneath the popliteal vein. Vessel loop control was obtained of the tibioperoneal trunk, anterior tibial artery, peroneal, and posterior tibial artery. At this point, I used the tunneling device and tunneled anatomically underneath from the below-knee aspect underneath the sartorius muscle up into the femoral sheath. The patient was then heparinized with 100 units/kg, and ECTs were periodically checked to ensure adequate levels. I then clamped the common femoral artery, profunda arteries, and the superficial femoral artery. An arteriotomy was made with #11 blade, and extended with Andrade scissors both proximally, and onto the more anterior profunda artery. There was a very soft plaque that was noted throughout. It was not calcified, but clearly there was a femoral artery stenosis. Using a Mellette elevator, I dissected this plaque off the arterial wall, as well as obtained a nice cast in the endpoint and both profunda arteries, as well as superficial femoral artery. More proximally there was still a little bit of posterior plaque sludge which we transected with Andrade scissors. The patient had excellent inflow, when the clamp was released, as well as very brisk backbleeding from profunda arteries, especially the more posterior profunda artery. Then, I selected a bovine pericardial patch, and it was sewn into place with 6-0 Prolene. I started my apex on the profunda artery, prior to completion of anastomosis the common femoral artery was flushed, and all the profunda arteries and superficial femoral arteries were back-bled. Adequate hemostasis was then obtained with completion of anastomosis. I then advanced a 6 x 80 mm ringed Propaten graft through the tunneling device. I beveled the graft, and evaluate the length of my arteriotomy that was easy. I then made a graftotomy with #11 blade and extended with Andrade scissors. The proximal graft was then sewn into the bovine pericardial patch with 6-0 Prolene in running fashion. No significant bleeding was Unit #: [id number] #: [id number] Patient: WAN BUSTAMANTE noted from the suture line with removal of the common femoral artery clamp. I then removed all the clamps off the common femoral, superficial femoral, and profunda arteries. The distal aspect of the graft was clamped. We then hyperextended the knee to ensure we had adequate length. I obtained vessel loop control of the tibioperoneal trunk, as well as the anterior tibial artery, as well as peroneal artery. A small bulldog was used for the posterior tibial artery. I then made an arteriotomy with #11 blade, on the posterior tibial artery and extended it proximally onto the tibioperoneal trunk. We did come upon a little bit of posterior plaque of the tibioperoneal trunk, which was removed. The arteriotomy across the orifice of the peroneal artery. I then transected the graft, and beveled it to fit the length of the arteriotomy. It was then sewn into place with 6-0 Prolene in running fashion. Prior to completion of the anastomosis, I flushed the tibioperoneal trunk, and back-bled the peroneal and posterior tibial arteries. I then completed the anastomosis. There was some needle hole bleeding, which did not resolve with procoagulant products. Ultimately, I placed several U-stitches, as it appeared to be that the suture line was a little bit loose. These sutures then achieved adequate hemostasis, in addition with the use of FloSeal and Surgicel, and manual pressure. The patient had excellent triphasic signal distal to the graft at the below-knee segment. She had a triphasic signal at the posterior tibial artery, which dissipated with manual compression of the graft. I chose not to perform a right lower extremity angiogram. The groin incision was then closed with 2-0 Vicryl to reapproximate the femoral sheath. The wound was then closed with 3-0 Vicryl in running fashion, 4-0 Monocryl in subcuticular fashion. Prevena dressing was then applied over the right groin, given the patient's obesity and diabetes, edematous nature of her wound, so as to minimize the risk of wound infection. I also enclosed the below-knee popliteal incision with 2-0 Vicryl to reapproximate the sheath, and 3-0 Vicryl in deep dermal fashion, 4-0 Monocryl in subcuticular fashion. This incision was covered with 4x4 gauze and Tegaderm dressing. At the end of the case, all counts were correct and I was present for the entire duration of the procedure. Dictated by.Philippe. John Dinh TD: 10/23/2016 06:36 JOB #: [id number] OPERATIVE REPORT Page 1 of 1 X X PROCEDURE OPERATIVE NOTE
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
--- NOTE | ~2016-10-10 | OR ---
Unit #: [id number] #: [id number] Patient: WAN BUSTAMANTE [id number] [address] [place], [place] [address] [id number] Babar MR#: [id number] NAME: WAN BUSTAMANTE ROOM: 575 Date of Procedure: 10/26/2016 Admission Date: 10/10/2016 Surgeon: Harley Crenshaw M.D. : 1940 Attending Physician: Dante Cochran M.D. OPERATIVE REPORT PROCEDURE PERFORMED Right first toe amputation, proximal phalanx. 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 She has undergone a right femoral to tibioperoneal trunk bypass earlier this week. She has dry gangrene of the distal aspect of her first toe, now presents for amputation. I talked to the patient about the risks and benefits of the operation. The risks include, but are not limited to, bleeding, infection, failure to heal the wound, and need for further procedures. The benefit of procedure would be removal of her infected toe, which have grown out MSSA cultures. She expressed understanding and elected to proceed with the operation. OSTOMY CARE NURSE Luis Nye CSA. FINDINGS Gangrenous distal first toe, but otherwise healthy tissue, healthy proximal phalanx. No drainage and no purulence. ESTIMATED BLOOD LOSS 10 mL. DESCRIPTION OF PROCEDURE After informed consent was obtained, the patient was brought to the operating room table and placed in supine position. The patient's right foot and lower leg were prepped and draped in standard fashion. At this point, a time-out procedure was performed. Using 1% lidocaine, I performed an ankle block, first injecting the needle into the posterior tibial nerve bundle, aspirating, so as to ensure that was not in the vessel and infiltrated 1% lidocaine. Using similar technique, I did this in the anterior tibial nerve bundle. I then did digital nerve blocks on the lateral and anterior aspect of the first toe. I also did infiltrate 1%, skin along the skin edge, where the incision would be made. I then marked out a fishmouth incision along the aspect of the first toe. Horizontally, the distal aspect of the first toe that was involved and I do not believe that she would need a metatarsal resection. I then made a skin incision with a #15 blade, dissected down through the subcutaneous tissue down to bone. I then cleared off the bone with a periosteal elevator. The bone cutter was removed and then I transected the bone, the proximal phalanx, at its base. I then removed additional pieces with a Unit #: [id number] #: [id number] Patient: WAN BUSTAMANTE. There was good brisk bleeding in her wound bed. Some of it was stopped with electrocautery. I then reapproximated her wound with 3-0 nylons in a vertical mattress fashion. The wound was then covered with 4 x 4, fluffs, Kerlix, and Coban wrap. At the end of the case. The patient had a dopplerable DP and PT signal. At the end of the case, all counts were correct and I was present for the entire duration of the procedure. Dictated by... John Dinh/jan TD: 10/27/2016 03:50 JOB #: [id number] OPERATIVE REPORT Page 1 of 1 X X PROCEDURE OPERATIVE NOTE
--- NOTE | ~2016-10-10 | CR127 ---
[facility] A Service of [facility] RADIOLOGY TEXT RESULTS PATIENT: WAN BUSTAMANTE LOCATION: [facility] [id number] : [birth year] UNIT #: [id number] AGE: [address]: Samira Disla MD SEX: F ORDER DR: [id number] [facility] [address] [place], [place] [address] [id number] I MR#: [id number] Acc #: [id number] NAME: WAN BUSTAMANTE : 1940 SEX: F STUDY DATE/TIME: 10/10/2016 13:16 UNIT: [facility] ROOM: [id number] STUDY DESCRIPTION: CR Foot Complete Min 3 View Rt Attending Physician: Samira Disla M.D. Ordering Physician: Jf Pittman M.D. Primary Care Physician: Generic Doctor Not In System MEDICAL IMAGING REPORT This report is preliminary unless electronic signature is present EXAM Right foot, 10/10/2016. HISTORY Pain in the foot, particularly at the great toe, for the last 2-3 days. No trauma. TECHNIQUE 3 views of the right foot were obtained. COMPARISON No comparison. FINDINGS Posterior and plantar calcaneal spurs are present. There is also some degenerative spurring in the midfoot. There is degenerative spurring and joint space narrowing at the first metatarsophalangeal joint. There is a bunion on the head of the first metatarsal. No fractures are seen in the foot. Soft tissues are unremarkable. 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 No acute findings. Dictated by... Jf Herring Jr., M.D. THIS IS AN ELECTRONICALLY VERIFIED REPORT Jf Herring Jr., M.D. at 10/10/2016 2:24 PM MERLYN/georges [facility] A Service of [facility] RADIOLOGY TEXT RESULTS PATIENT: WAN BUSTAMANTE LOCATION: [facility] [id number] : [birth year] UNIT #: [id number] AGE: [address]: Samira Disla MD SEX: F ORDER DR: TD: 10/10/2016 13:49 JOB #: [id number] MEDICAL IMAGING REPORT Page 1 of 1 COPY
--- NOTE | ~2016-10-10 | CR72 ---
[facility] A Service of [facility] RADIOLOGY TEXT RESULTS PATIENT: WAN BUSTAMANTE LOCATION: [facility] 5711-12 : 42 UNIT #: [id number] AGE: [address]: Harihs Salas MD SEX: F ORDER DR: [id number] [facility] [address] [place], [place] [address] [id number] I MR#: [id number] Acc #: [id number] NAME: WAN BUSTAMANTE : 1940 SEX: F STUDY DATE/TIME: 10/12/2016 3:48 UNIT: [facility] ROOM: [facility] STUDY DESCRIPTION: CR Chest Single View Portable Attending Physician: Rosemarie Fernando M.D. Ordering Physician: Jaky Subramanian M.D. Primary Care Physician: Generic Doctor Not In System MEDICAL IMAGING REPORT This report is preliminary unless electronic signature is present EXAM Frontal chest, 10/12/2016 INDICATION 76-year-old female with a history of PICC line placement, short of air and weakness. TECHNIQUE Frontal chest was performed. COMPARISON Correlation is made with chest CT, 10/10/2016. FINDINGS There is a right-sided PICC line. The tip is at the [id number] SVC level. There is no pneumothorax. Cardiac silhouette is enlarged. Vascularity unremarkable. No new effusion or dense consolidation. IMPRESSION 1. New right-sided PICC line tip at the [id number]-[id number] SVC level. No pneumothorax. 2. Cardiomegaly. No new opacities. Dictated by... Johann Jj M.D. THIS IS AN ELECTRONICALLY VERIFIED REPORT Johann Jj M.D. at 10/15/2016 9:13 AM Lorenzo TD: 10/12/2016 08:52 JOB #: [id number] [facility] A Service of [facility] RADIOLOGY TEXT RESULTS PATIENT: WAN BUSTAMANTE LOCATION: [facility] 5711-12 : 42 UNIT #: [id number] AGE: [address]: Harish Salas MD SEX: F ORDER DR: MEDICAL IMAGING REPORT Page 1 of 1 COPY
--- NOTE | ~2016-10-10 | US136 ---
[facility] A Service of [facility] RADIOLOGY TEXT RESULTS PATIENT: WAN BUSTAMANTE LOCATION: [facility] 575-01 : 42 UNIT #: [id number] AGE: [address]: Gregor Corral MD SEX: F ORDER DR: [id number] [facility] [address] [place], [place] [address] [id number] I MR#: [id number] Acc #: [id number] NAME: WAN BUSTAMANTE : 1940 SEX: F STUDY DATE/TIME: 10/30/2016 12:22 UNIT: [facility] ROOM: [facility] STUDY DESCRIPTION: US U/L Ext Art Study Ltd Bilat Attending Physician: Dante Cochran M.D. Ordering Physician: Dante Cochran M.D. Primary Care Physician: Generic Doctor Not In System MEDICAL IMAGING REPORT This report is preliminary unless electronic signature is present EXAM Bilateral lower extremity ZHEN date of exam 10/30/2016 HISTORY Peripheral arterial disease. History of right leg bypass. FINDINGS The right brachial pressure is 177, left is 158. Right dorsalis pedis pressure is 161 and posterior tibial is 146 for an ZHEN of 0.91 and first toe pressure that was not obtained due to previous amputation. Left dorsalis pedis pressure is 68 and posterior tibial is 74 for an ZHEN of 0.42 and a first toe pressure of 43 mmHg. PVR waveform is normal in appearance at the right ankle and significantly diminished at the left ankle. Arterial waveforms of the dorsalis pedis and posterior tibial arteries demonstrate triphasic waveform at the right posterior tibial artery and biphasic waveform at the right dorsalis pedis artery. There are monophasic waveforms at the left dorsalis pedis and posterior tibial artery. Waveform at the left first toe is significantly diminished. IMPRESSION 1. No arterial insufficiency of the right lower extremity based on ZHEN. 2. Severe arterial insufficiency of the left lower extremity with diminished perfusion of the first toe consistent with small vessel disease. Dictated by... Carmenza Aguilar M.D. THIS IS AN ELECTRONICALLY VERIFIED REPORT Carmenza Aguilar M.D. at 11/07/2016 11:50 AM [facility] A Service of [facility] RADIOLOGY TEXT RESULTS PATIENT: WAN BUSTAMANTE LOCATION: [facility] 575-01 : 42 UNIT #: [id number] AGE: [address]: Gregor Corral MD SEX: F ORDER DR: VLAD/rnr TD: 10/30/2016 15:12 JOB #: [id number] MEDICAL IMAGING REPORT Page 1 of 1 COPY
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
--- NOTE | ~2016-10-10 | US77 ---
[facility] A Service of [facility] & [facility] RADIOLOGY TEXT RESULTS PATIENT: WAN BUSTAMANTE LOCATION: [facility] [id number] : 42 UNIT #: [id number] AGE: [address]: Samira Disla MD SEX: F ORDER DR: [id number] [facility] [address] [place], [place] [address] [id number] I MR#: [id number] #: [id number] NAME: WAN BUSTAMANTE : 1940 SEX: F STUDY DATE/TIME: 10/10/2016 15:21 UNIT: [facility] ROOM: [id number] STUDY DESCRIPTION: US Kidney Bilateral Complete Attending Physician: Samira Disla M.D. Ordering Physician: Samira Disla M.D. Primary Care Physician: Generic Doctor Not In System MEDICAL IMAGING REPORT This report is preliminary unless electronic signature is present EXAM Bilateral renal ultrasound. DATE OF EXAM 10/10/2016 INDICATION Elevated BUN and creatinine and low GFR. FINDINGS The right kidney is about 9.0 cm in length. There is no mass, cyst or hydronephrosis visible. Bladder is normal. Left kidney is about 9.3 cm in length, and also appears normal. IMPRESSION 1. Kidneys are normal in size, and there is no hydronephrosis. Dictated by... Colton Gomez M.D. THIS IS AN ELECTRONICALLY VERIFIED REPORT Colton Gomez M.D. at 10/10/2016 4:22 PM VIKTORIA/angelina TD: 10/10/2016 16:09 JOB #: [id number] MEDICAL IMAGING REPORT Page 1 of 1 COPY
--- NOTE | ~2016-10-10 | EKG ---
PATIENT: WAN BUSTAMANTE UNIT #: [id number] Ventricular Rate: 109 BPM Atrial Rate: 100 BPM QRS Duration: 78 ms Q-T Interval: 296 ms QTC Calculation(Bezet): 398 ms Calculated R Holiday: 27 degrees Calculated T Holiday: -37 degrees Diagnosis Line: Atrial fibrillation with rapid ventricular Diagnosis Line: response Diagnosis Line: Nonspecific T wave abnormality , probably Diagnosis Line: digitalis effect Diagnosis Line: Abnormal ECG Diagnosis Line: When compared with ECG of 16-OCT-2016 16:56, Diagnosis Line: Borderline criteria for Lateral infarct are no Diagnosis Line: longer Present Diagnosis Line: Nonspecific T wave abnormality has replaced Diagnosis Line: inverted T waves in Anterior leads Diagnosis Line: Confirmed by DAY PHILLIPS MD ([id number]) on 10/28/2016 Diagnosis Line: 7:14:26 AM INTERPRETING MD: ALAN GAVIN
--- NOTE | ~2016-10-10 | CT57 ---
[facility] A Service of [facility] RADIOLOGY TEXT RESULTS PATIENT: WAN BUSTAMANTE LOCATION: [facility] [id number] : 42 UNIT #: [id number] AGE: [address]: Samira Disla MD SEX: F ORDER DR: [id number] [facility] [address] [place], [place] [address] [id number] I MR#: [id number] Acc #: [id number] NAME: WAN BUSTAMANTE : 1940 SEX: F STUDY DATE/TIME: 10/10/2016 14:21 UNIT: [facility] ROOM: [id number] STUDY DESCRIPTION: CT Chest Wo Cont Attending Physician: Samira Disla M.D. Ordering Physician: Samira Disla M.D. Primary Care Physician: Generic Doctor Not In System MEDICAL IMAGING REPORT This report is preliminary unless electronic signature is present EXAM CT of the chest without contrast 10/10/2016 INDICATIONS Congestion for 1 day. Patient also reports weakness and no appetite. TECHNIQUE Axial CT images were obtained from the thoracic inlet through the dome of the diaphragm. No intravenous contrast material administered. This CT exam was performed with one or more of the following radiation dose reduction techniques: automatic exposure control, adjustment of mA and/or kV according to patient size, and iterative reconstruction. FINDINGS Lungs appear clear. Thyroid gland is heterogeneous and contains calcifications. Similar findings were present on a prior exam from November 21, 2011. Trachea and esophagus appear unremarkable. There is no pleural or pericardial effusion. There is aneurysmal dilatation of the ascending thoracic aorta which measures up to 4.4 cm which is probably not significantly changed when compared to the prior exam. Main pulmonary artery is enlarged measuring up to 3.5 cm which can be seen in the setting of pulmonary arterial hypertension. Again this is a stable finding when compared to the prior study. Mediastinal lymph nodes do not appear pathologically enlarged. There is no pleural or pericardial effusion. No acute abnormalities are seen within the upper abdomen. Review of bony windows does not demonstrate any aggressive osseous abnormalities. Patient does have extensive degenerative changes seen within the right shoulder. IMPRESSION. 1. No acute findings. No pulmonary infiltrates are seen. There is aneurysmal dilatation of the ascending thoracic aorta measuring up to STS. [facility] A Service of [facility] & [facility] RADIOLOGY TEXT RESULTS PATIENT: WAN BUSTAMANTE LOCATION: [facility] 69046-54 : 42 UNIT #: [id number] AGE: [address]: Samira Disla MD SEX: F ORDER DR: 4.4 cm but this is unchanged when compared to a study from November 20, 2009. Enlargement of the main pulmonary artery is also stable when compared to that study. 2. Heterogeneous appearance to the thyroid gland, similar findings were also present on the prior study from 2009. This would certainly be more accurately assessed with dedicated thyroid ultrasound on a nonemergent outpatient basis. Please see the body of the report for any other additional incidental findings. Dictated by... Marta Campos M.D. THIS IS AN ELECTRONICALLY VERIFIED REPORT Marta Campos M.D. at 10/10/2016 4:37 PM CATHY/ana laura TD: 10/10/2016 15:02 JOB #: [id number] MEDICAL IMAGING REPORT Page 1 of 1 COPY
[2016-10-10 11:16] LABS: BASOPHIL# 0.1 X10e3 (0-0.3); BASOPHIL% 0.6 % (0-2.5); EOSINOPHIL% 0.2 % (0.0-7.0); HEMATOCRIT 37.5 % (35.0-45.0); HEMOGLOBIN 12.4 gm/dL (12.0-16.0); LYMPHOCYTE# 1.7 X10e3 (1.0-3.5); LYMPHOCYTE% 13.3 % (17.0-45.0); MEAN CELL VOLUME 78.6 FL (83-96); MEAN CORPUSCULAR HGB CONC 33.1 g/dL (30-36); MONOCYTE# 0.8 X10e3 (0-1.0); MONOCYTE% 5.9 % (3.0-12.0); NEUTROPHIL# 10.5 X10e3 (1.5-7.1); PLATELET COUNT 304 X10e3 (140-420); RED BLOOD COUNT 4.77 X10e (3.90-5.30); RED CELL DISTRIBUTION WIDTH 13.8 % (11.0-15.5); WHITE BLOOD COUNT 13.1 X10e3 (4.0-10.5)
[2016-10-10 11:17] LABS: DIFF IND NO
[~2016-10-10 11:21] MED LIST: ALLERGY RELIEF10 M1 PO; AMLODIPINE BESY10 MG PO; ANTIVERT PO; ASPIRIN81 M1 PO; ATORVASTATIN; DEMADEX PO; FISHOIL; FUROSEMIDE; HYDROCHLOROTHIA25 MG PO; LANTUS SOLOSTAR3 ML; LISINOPRIL; LOPRESSOR100 MG PO; LOTENSIN20 MG PO; LOVASTATIN20 MG PO; MEVACOR PO; POTASSIUM CHLO10 ME1 PO; PRADAXA150 MG PO; TRAVATAN5 ML OP
[2016-10-10 11:30] LABS: INR 1.5; PROTHROMBIN TIME (PATIENT) 16.5 SECONDS (9.6-11.5)
[2016-10-10 11:42] LABS: ALBUMIN SERUM 3.2 g/dL (3.5-5.0); BILIRUBIN, DIRECT 0.3 mg/dL (0.0-0.2); BILIRUBIN,INDIRECT 0.8 mg/dL (0.0-0.9); BILIRUBIN,TOTAL 1.1 mg/dL (0.2-2.0); BUN/CREATININE RATIO 24.54; CALCIUM SERUM 8.7 mg/dL (8.4-10.2); CREATININE SERUM 2.2 mg/dL (0.6-1.4); GLOM FILT RATE Estimated 24.8 mL/min (>60)
[2016-10-10 11:46] LABS: POTASSIUM 2.9 mmol/L (3.5-5.1)
[2016-10-10] MEDS ORDERED: ASPIRIN81 MG PO (12:24)
[2016-10-10] MEDS ORDERED: IRON325 ( 651 PO (12:25)
[2016-10-10] MEDS ORDERED: LIPITOR40 MG PO (12:25)
[2016-10-10] MEDS ORDERED: FUROSEMIDE40 MG PO (12:26)
[2016-10-10] MEDS ORDERED: FISH OIL500 MG PO (12:26)
[2016-10-10] MEDS ORDERED: FLONASE 0.05% N16 G1 (12:26)
[2016-10-10] MEDS ORDERED: NEURONTIN600 MG PO (12:27)
[2016-10-10] MEDS ORDERED: HYDROCHLOROTHIA25 MG PO (12:27)
[2016-10-10] MEDS ORDERED: LISINOPRIL PO (12:27)
[2016-10-10] MEDS ORDERED: CLARITIN10 M2 PO (12:28)
[2016-10-10] MEDS ORDERED: MECLIZINE HCL25 M1 PO (12:28)
[2016-10-10] MEDS ORDERED: METOPROLOL TAR100 MG PO (12:28)
[2016-10-10] MEDS ORDERED: POTASSIUM CHLO10 MEQ PO (12:29)
[2016-10-10] MEDS ORDERED: REFRESH EYE DRO50 E1 OU (12:30)
[2016-10-10] MEDS ORDERED: VITAMIN D250000 UNIT PO (12:30)
[2016-10-10] MEDS ORDERED: LANTUS100 U/ML SUBQ (12:32)
[2016-10-10 13:32] LABS: POC - TROPONIN <0.05 ng/mL (<=0.05)
[2016-10-10 13:32] LABS: POC - CKMB 6.6 ng/mL (0.0-7.9); POC - TROPONIN <0.05 ng/mL (<=0.05)
[2016-10-10 14:23] LABS: URINE SOURCE CLEAN CATCH
[2016-10-10 14:33] LABS: URINE APPEARANCE CLEAR; URINE BILIRUBIN NEG (NEG); URINE BLOOD NEG (NEG); URINE COLOR YELLOW; URINE GLUCOSE 250 MG/DL (NEG); URINE KETONE NEG (NEG); URINE LEUKOCYTE ESTERASE TRACE (NEG); URINE NITRATE NEG (NEG); URINE PROTEIN NEG (NEG); URINE SPECIFIC GRAVITY 1.008 (1.003-1.035); URINE UROBILINOGEN 0.2 MG/DL (NEG)
[2016-10-10 14:38] LABS: URINE BACTERIA AUWI NEG (NEGATIVE); URINE SQUAMOUS EPITHELIAL CELL OCC /[HPF]
[2016-10-10 14:46] LABS: CULTURE INDICATED? NO
[2016-10-10 14:56] LABS: OSMOLALITY,URINE 261 mOsmo/kg (250-900)
[2016-10-10 15:03] LABS: CREATININE,RANDOM URINE 31 mg/dL; SODIUM URINE RANDOM 54 mmol/L
[2016-10-10 18:50] LABS: BUN/CREATININE RATIO 26.66; CALCIUM SERUM 8.5 mg/dL (8.4-10.2); CREATININE SERUM 1.8 mg/dL (0.6-1.4); GLOM FILT RATE Estimated 31.6 mL/min (>60); POTASSIUM 3.8 mmol/L (3.5-5.1)
[2016-10-10 19:08] LABS: %MB 2.9 % (0.0-4.0); MB 4.1 ng/ml
[2016-10-11 01:50] LABS: %MB 2.9 % (0.0-4.0); MB 3.7 ng/ml
[2016-10-11 05:27] LABS: BASOPHIL# 0.1 X10e3 (0-0.3); BASOPHIL% 1.2 % (0-2.5); EOSINOPHIL# 0.2 X10e3 (0-0.7); EOSINOPHIL% 1.9 % (0.0-7.0); HEMATOCRIT 32.6 % (35.0-45.0); HEMOGLOBIN 10.6 gm/dL (12.0-16.0); LYMPHOCYTE# 2.6 X10e3 (1.0-3.5); LYMPHOCYTE% 25.6 % (17.0-45.0); MEAN CELL VOLUME 79.4 FL (83-96); MEAN CORPUSCULAR HEMOGLOBIN 25.8 PG (28-34); MEAN CORPUSCULAR HGB CONC 32.5 g/dL (30-36); MONOCYTE# 0.9 X10e3 (0-1.0); NEUTROPHIL# 6.4 X10e3 (1.5-7.1); NEUTROPHIL% 62.3 % (40-75); PLATELET COUNT 247 X10e3 (140-420); RED BLOOD COUNT 4.11 X10e (3.90-5.30); RED CELL DISTRIBUTION WIDTH 13.8 % (11.0-15.5); WHITE BLOOD COUNT 10.2 X10e3 (4.0-10.5)
[2016-10-11 05:28] LABS: DIFF IND NO
[2016-10-11 05:46] LABS: INR 1.5; PROTHROMBIN TIME (PATIENT) 16.3 SECONDS (9.6-11.5)
[2016-10-11 06:37] LABS: ALBUMIN SERUM 2.3 g/dL (3.5-5.0); BILIRUBIN,TOTAL 0.6 mg/dL (0.2-2.0); CREATININE SERUM 1.5 mg/dL (0.6-1.4); GLOM FILT RATE Estimated 39.4 mL/min (>60); POTASSIUM 3.2 mmol/L (3.5-5.1); PROTEIN TOTAL SERUM 5.4 g/dL (6.0-8.3)
[2016-10-11 18:11] LABS: %MB 2.3 % (0.0-4.0); MB 3.3 ng/ml
[2016-10-12 05:52] LABS: HEMATOCRIT 32.8 % (35.0-45.0); HEMOGLOBIN 10.5 gm/dL (12.0-16.0); MEAN CORPUSCULAR HEMOGLOBIN 25.3 PG (28-34); MEAN PLATELET VOLUME 8.8 FL (6.5-11.5); RED BLOOD COUNT 4.16 X10e (3.90-5.30); RED CELL DISTRIBUTION WIDTH 13.8 % (11.0-15.5); WHITE BLOOD COUNT 11.8 X10e3 (4.0-10.5)
[2016-10-12 06:23] LABS: BUN/CREATININE RATIO 19.16; CALCIUM SERUM 7.9 mg/dL (8.4-10.2); CREATININE SERUM 1.2 mg/dL (0.6-1.4); GLOM FILT RATE Estimated 51.6 mL/min (>60); MAGNESIUM 1.7 mg/dL (1.6-3.0); POTASSIUM 4.6 mmol/L (3.5-5.1)
[2016-10-12 06:29] LABS: INR 1.2; PROTHROMBIN TIME (PATIENT) 12.7 SECONDS (9.6-11.5)
[2016-10-13 12:31] LABS: HEMATOCRIT 30.8 % (35.0-45.0); HEMOGLOBIN 9.8 gm/dL (12.0-16.0); MEAN CELL VOLUME 80.5 FL (83-96); MEAN CORPUSCULAR HEMOGLOBIN 25.5 PG (28-34); MEAN CORPUSCULAR HGB CONC 31.8 g/dL (30-36); MEAN PLATELET VOLUME 8.6 FL (6.5-11.5); RED BLOOD COUNT 3.82 X10e (3.90-5.30); RED CELL DISTRIBUTION WIDTH 14.2 % (11.0-15.5); WHITE BLOOD COUNT 11.2 X10e3 (4.0-10.5)
[2016-10-13 13:09] LABS: BUN/CREATININE RATIO 12.22; CALCIUM SERUM 8.3 mg/dL (8.4-10.2); CREATININE SERUM 0.9 mg/dL (0.6-1.4); GLOM FILT RATE Estimated 73.1 mL/min (>60); MAGNESIUM 1.7 mg/dL (1.6-3.0); POTASSIUM 4.2 mmol/L (3.5-5.1)
[2016-10-14 06:51] LABS: HEMATOCRIT 26.6 % (35.0-45.0); HEMOGLOBIN 8.5 gm/dL (12.0-16.0); MEAN CELL VOLUME 80.9 FL (83-96); MEAN CORPUSCULAR HEMOGLOBIN 25.7 PG (28-34); MEAN CORPUSCULAR HGB CONC 31.8 g/dL (30-36); MEAN PLATELET VOLUME 8.6 FL (6.5-11.5); RED BLOOD COUNT 3.29 X10e (3.90-5.30); RED CELL DISTRIBUTION WIDTH 13.7 % (11.0-15.5); WHITE BLOOD COUNT 10.4 X10e3 (4.0-10.5)
[2016-10-14 07:33] LABS: CALCIUM SERUM 8.2 mg/dL (8.4-10.2); GLOM FILT RATE Estimated 64.3 mL/min (>60); MAGNESIUM 1.7 mg/dL (1.6-3.0); PHOSPHOROUS 2.1 mg/dL (2.5-4.6)
[2016-10-15 12:32] LABS: HEMATOCRIT 26.5 % (35.0-45.0); HEMOGLOBIN 8.6 gm/dL (12.0-16.0); MEAN CELL VOLUME 79.7 FL (83-96); MEAN CORPUSCULAR HEMOGLOBIN 25.7 PG (28-34); MEAN CORPUSCULAR HGB CONC 32.2 g/dL (30-36); MEAN PLATELET VOLUME 8.2 FL (6.5-11.5); RED BLOOD COUNT 3.33 X10e (3.90-5.30); RED CELL DISTRIBUTION WIDTH 13.8 % (11.0-15.5); WHITE BLOOD COUNT 8.8 X10e3 (4.0-10.5)
[2016-10-15 13:14] LABS: CALCIUM SERUM 8.4 mg/dL (8.4-10.2); GLOM FILT RATE Estimated 64.3 mL/min (>60)
[2016-10-16 06:16] LABS: MEAN CELL VOLUME 80.5 FL (83-96); MEAN CORPUSCULAR HEMOGLOBIN 25.7 PG (28-34); MEAN PLATELET VOLUME 8.3 FL (6.5-11.5); RED BLOOD COUNT 3.1 X10e (3.90-5.30); WHITE BLOOD COUNT 7.2 X10e3 (4.0-10.5)
[2016-10-16 07:00] LABS: BUN/CREATININE RATIO 7.77; CALCIUM SERUM 8.1 mg/dL (8.4-10.2); CREATININE SERUM 0.9 mg/dL (0.6-1.4); GLOM FILT RATE Estimated 73.1 mL/min (>60); POTASSIUM 3.9 mmol/L (3.5-5.1)
[2016-10-16 07:08] LABS: FOLATE (FOLIC ACID) 14.1 ng/mL (>5.8)
[2016-10-16 13:23] LABS: INR 1.1; PARTIAL THROMBOPLASTIN TIME 28.2 SECONDS (23.5-31.3); PROTHROMBIN TIME (PATIENT) 11.3 SECONDS (9.6-11.5)
[2016-10-17 07:13] LABS: GLOM FILT RATE Estimated 64.3 mL/min (>60)
[2016-10-17 07:52] LABS: GLOM FILT RATE Estimated 64.3 mL/min (>60); MAGNESIUM 1.6 mg/dL (1.6-3.0); POTASSIUM 4.3 mmol/L (3.5-5.1)
[2016-10-17 08:50] LABS: HEMATOCRIT 25.3 % (35.0-45.0); MEAN CORPUSCULAR HEMOGLOBIN 25.6 PG (28-34); MEAN CORPUSCULAR HGB CONC 31.6 g/dL (30-36); MEAN PLATELET VOLUME 8.6 FL (6.5-11.5); RED BLOOD COUNT 3.12 X10e (3.90-5.30); RED CELL DISTRIBUTION WIDTH 14.1 % (11.0-15.5); WHITE BLOOD COUNT 7.6 X10e3 (4.0-10.5)
[2016-10-18 06:42] LABS: CALCIUM SERUM 8.3 mg/dL (8.4-10.2); GLOM FILT RATE Estimated 64.3 mL/min (>60); POTASSIUM 3.7 mmol/L (3.5-5.1)
[2016-10-19 21:55] LABS: CALCIUM SERUM 8.5 mg/dL (8.4-10.2); GLOM FILT RATE Estimated 64.3 mL/min (>60); MAGNESIUM 1.5 mg/dL (1.6-3.0); POTASSIUM 3.6 mmol/L (3.5-5.1)
[2016-10-20 06:11] LABS: HEMATOCRIT 27.1 % (35.0-45.0); HEMOGLOBIN 8.6 gm/dL (12.0-16.0); MEAN CELL VOLUME 81.1 FL (83-96); MEAN CORPUSCULAR HEMOGLOBIN 25.6 PG (28-34); MEAN CORPUSCULAR HGB CONC 31.6 g/dL (30-36); MEAN PLATELET VOLUME 8.1 FL (6.5-11.5); RED BLOOD COUNT 3.34 X10e (3.90-5.30); RED CELL DISTRIBUTION WIDTH 14.2 % (11.0-15.5); WHITE BLOOD COUNT 7.1 X10e3 (4.0-10.5)
[2016-10-20 06:50] LABS: BUN/CREATININE RATIO 8.88; CALCIUM SERUM 8.4 mg/dL (8.4-10.2); CREATININE SERUM 0.9 mg/dL (0.6-1.4); GLOM FILT RATE Estimated 73.1 mL/min (>60); MAGNESIUM 1.9 mg/dL (1.6-3.0)
[2016-10-21 07:06] LABS: BUN/CREATININE RATIO 11.25; CALCIUM SERUM 8.6 mg/dL (8.4-10.2); CREATININE SERUM 0.8 mg/dL (0.6-1.4); GLOM FILT RATE Estimated 84.3 mL/min (>60); POTASSIUM 3.7 mmol/L (3.5-5.1)
[2016-10-22 07:34] LABS: MAGNESIUM 1.8 mg/dL (1.6-3.0); POTASSIUM 3.4 mmol/L (3.5-5.1)
[2016-10-23 10:08] LABS: HEMATOCRIT 21.3 % (35.0-45.0); MEAN CELL VOLUME 82.2 FL (83-96); MEAN CORPUSCULAR HEMOGLOBIN 25.4 PG (28-34); MEAN CORPUSCULAR HGB CONC 30.9 g/dL (30-36); MEAN PLATELET VOLUME 7.8 FL (6.5-11.5); RED BLOOD COUNT 2.6 X10e (3.90-5.30); WHITE BLOOD COUNT 13.6 X10e3 (4.0-10.5)
[2016-10-23 10:35] LABS: HEMOGLOBIN 6.6 gm/dL (12.0-16.0)
[2016-10-23 10:42] LABS: ALBUMIN SERUM 1.8 g/dL (3.5-5.0); BILIRUBIN,TOTAL 0.6 mg/dL (0.2-2.0); BUN/CREATININE RATIO 7.27; CREATININE SERUM 1.1 mg/dL (0.6-1.4); GLOM FILT RATE Estimated 57.3 mL/min (>60); POTASSIUM 4.3 mmol/L (3.5-5.1); PROTEIN TOTAL SERUM 4.6 g/dL (6.0-8.3)
[2016-10-23 15:59] LABS: HEMATOCRIT 19.3 % (35.0-45.0); MEAN CELL VOLUME 81.7 FL (83-96); MEAN CORPUSCULAR HEMOGLOBIN 25.4 PG (28-34); MEAN CORPUSCULAR HGB CONC 31.1 g/dL (30-36); MEAN PLATELET VOLUME 7.8 FL (6.5-11.5); RED BLOOD COUNT 2.37 X10e (3.90-5.30); RED CELL DISTRIBUTION WIDTH 15.4 % (11.0-15.5); WHITE BLOOD COUNT 12.8 X10e3 (4.0-10.5)
[2016-10-23] MEDS ORDERED: K-DUR10 MEQ PO (16:42)
[2016-10-23] MEDS ORDERED: ASPIRIN81 MG PO (16:42)
[2016-10-23] MEDS ORDERED: TOPROL XL PO (16:43)
[2016-10-23] MEDS ORDERED: BACTRIM DS TAB1 EACH PO (16:43)
[2016-10-24 08:18] LABS: HEMATOCRIT 28.1 % (35.0-45.0); MEAN CELL VOLUME 82.7 FL (83-96); MEAN CORPUSCULAR HEMOGLOBIN 26.4 PG (28-34); MEAN CORPUSCULAR HGB CONC 31.9 g/dL (30-36); RED BLOOD COUNT 3.39 X10e (3.90-5.30); RED CELL DISTRIBUTION WIDTH 15.2 % (11.0-15.5); WHITE BLOOD COUNT 12.4 X10e3 (4.0-10.5)
[2016-10-24 08:25] LABS: HEMOGLOBIN 8.9 gm/dL (12.0-16.0)
[2016-10-24 08:27] LABS: INR 1.2; PROTHROMBIN TIME (PATIENT) 12.9 SECONDS (9.6-11.5)
[2016-10-24 10:48] LABS: BUN/CREATININE RATIO 8.18; CALCIUM SERUM 7.7 mg/dL (8.4-10.2); CREATININE SERUM 1.1 mg/dL (0.6-1.4); GLOM FILT RATE Estimated 57.3 mL/min (>60); MAGNESIUM 1.8 mg/dL (1.6-3.0); POTASSIUM 3.9 mmol/L (3.5-5.1)
[2016-10-25 01:19] LABS: INR 1.2; PARTIAL THROMBOPLASTIN TIME 63.2 SECONDS (23.5-31.3); PROTHROMBIN TIME (PATIENT) 12.6 SECONDS (9.6-11.5)
[2016-10-25 07:05] LABS: HEMATOCRIT 28.1 % (35.0-45.0); HEMOGLOBIN 8.9 gm/dL (12.0-16.0); MEAN CELL VOLUME 82.7 FL (83-96); MEAN CORPUSCULAR HEMOGLOBIN 26.2 PG (28-34); MEAN CORPUSCULAR HGB CONC 31.7 g/dL (30-36); MEAN PLATELET VOLUME 8.3 FL (6.5-11.5); RED BLOOD COUNT 3.39 X10e (3.90-5.30); RED CELL DISTRIBUTION WIDTH 15.4 % (11.0-15.5); WHITE BLOOD COUNT 11.2 X10e3 (4.0-10.5)
[2016-10-25 07:42] LABS: CALCIUM SERUM 7.8 mg/dL (8.4-10.2); GLOM FILT RATE Estimated 64.3 mL/min (>60); MAGNESIUM 1.9 mg/dL (1.6-3.0); POTASSIUM 3.9 mmol/L (3.5-5.1)
[2016-10-26 07:55] LABS: HEMATOCRIT 27.8 % (35.0-45.0); MEAN CELL VOLUME 82.8 FL (83-96); MEAN CORPUSCULAR HEMOGLOBIN 26.7 PG (28-34); MEAN CORPUSCULAR HGB CONC 32.2 g/dL (30-36); MEAN PLATELET VOLUME 8.4 FL (6.5-11.5); RED BLOOD COUNT 3.36 X10e (3.90-5.30); RED CELL DISTRIBUTION WIDTH 15.1 % (11.0-15.5); WHITE BLOOD COUNT 9.7 X10e3 (4.0-10.5)
[2016-10-26 08:22] LABS: CALCIUM SERUM 7.6 mg/dL (8.4-10.2); CREATININE SERUM 0.9 mg/dL (0.6-1.4); GLOM FILT RATE Estimated 73.1 mL/min (>60); POTASSIUM 3.6 mmol/L (3.5-5.1)
[2016-10-26 08:28] LABS: INR 1.2; PROTHROMBIN TIME (PATIENT) 12.8 SECONDS (9.6-11.5)
[2016-10-27 05:43] LABS: HEMATOCRIT 29.1 % (35.0-45.0); HEMOGLOBIN 9.5 gm/dL (12.0-16.0); MEAN CORPUSCULAR HEMOGLOBIN 26.6 PG (28-34); MEAN CORPUSCULAR HGB CONC 32.4 g/dL (30-36); MEAN PLATELET VOLUME 8.2 FL (6.5-11.5); RED BLOOD COUNT 3.55 X10e (3.90-5.30); RED CELL DISTRIBUTION WIDTH 15.6 % (11.0-15.5); WHITE BLOOD COUNT 9.4 X10e3 (4.0-10.5)
[2016-10-27 05:54] LABS: INR 1.2; PARTIAL THROMBOPLASTIN TIME 48.3 SECONDS (23.5-31.3); PROTHROMBIN TIME (PATIENT) 13.1 SECONDS (9.6-11.5)
[2016-10-27 06:29] LABS: CALCIUM SERUM 8.1 mg/dL (8.4-10.2); CREATININE SERUM 0.9 mg/dL (0.6-1.4); GLOM FILT RATE Estimated 73.1 mL/min (>60); MAGNESIUM 1.8 mg/dL (1.6-3.0); POTASSIUM 3.9 mmol/L (3.5-5.1)
[2016-10-28 01:29] LABS: INR 1.2; PARTIAL THROMBOPLASTIN TIME 97.7 SECONDS (23.5-31.3); PROTHROMBIN TIME (PATIENT) 12.8 SECONDS (9.6-11.5)
[2016-10-28 07:30] LABS: HEMATOCRIT 25.4 % (35.0-45.0); HEMOGLOBIN 8.1 gm/dL (12.0-16.0); MEAN CORPUSCULAR HEMOGLOBIN 26.9 PG (28-34); MEAN CORPUSCULAR HGB CONC 32.1 g/dL (30-36); MEAN PLATELET VOLUME 8.2 FL (6.5-11.5); RED BLOOD COUNT 3.02 X10e (3.90-5.30); RED CELL DISTRIBUTION WIDTH 16.2 % (11.0-15.5); WHITE BLOOD COUNT 6.9 X10e3 (4.0-10.5)
[2016-10-28 07:55] LABS: BUN/CREATININE RATIO 7.77; CALCIUM SERUM 8.1 mg/dL (8.4-10.2); CREATININE SERUM 0.9 mg/dL (0.6-1.4); GLOM FILT RATE Estimated 73.1 mL/min (>60); POTASSIUM 3.4 mmol/L (3.5-5.1)
[2016-10-29 06:18] LABS: BUN/CREATININE RATIO 8.88; CREATININE SERUM 0.9 mg/dL (0.6-1.4); GLOM FILT RATE Estimated 73.1 mL/min (>60); POTASSIUM 4.2 mmol/L (3.5-5.1)
[2016-10-29 08:44] LABS: INR 3.4; PROTHROMBIN TIME (PATIENT) 37.2 SECONDS (9.6-11.5)
[2016-10-29 08:49] LABS: PARTIAL THROMBOPLASTIN TIME 185.8 SECONDS (23.5-31.3)
[2016-10-30 05:35] LABS: HEMATOCRIT 27.2 % (35.0-45.0); HEMOGLOBIN 8.7 gm/dL (12.0-16.0); MEAN CELL VOLUME 83.3 FL (83-96); MEAN CORPUSCULAR HEMOGLOBIN 26.8 PG (28-34); MEAN CORPUSCULAR HGB CONC 32.1 g/dL (30-36); MEAN PLATELET VOLUME 8.3 FL (6.5-11.5); RED BLOOD COUNT 3.26 X10e (3.90-5.30); RED CELL DISTRIBUTION WIDTH 16.7 % (11.0-15.5); WHITE BLOOD COUNT 6.3 X10e3 (4.0-10.5)
[2016-10-30 06:12] LABS: INR 2.9; PROTHROMBIN TIME (PATIENT) 31.9 SECONDS (9.6-11.5)
[2016-10-30 06:37] LABS: BUN/CREATININE RATIO 11.11; CALCIUM SERUM 8.2 mg/dL (8.4-10.2); CREATININE SERUM 0.9 mg/dL (0.6-1.4); GLOM FILT RATE Estimated 73.1 mL/min (>60); POTASSIUM 3.7 mmol/L (3.5-5.1)
[2016-10-31 07:21] LABS: HEMATOCRIT 27.1 % (35.0-45.0); HEMOGLOBIN 8.6 gm/dL (12.0-16.0); MEAN CELL VOLUME 83.4 FL (83-96); MEAN CORPUSCULAR HEMOGLOBIN 26.5 PG (28-34); MEAN CORPUSCULAR HGB CONC 31.7 g/dL (30-36); MEAN PLATELET VOLUME 8.3 FL (6.5-11.5); RED BLOOD COUNT 3.24 X10e (3.90-5.30); RED CELL DISTRIBUTION WIDTH 16.4 % (11.0-15.5)
[2016-10-31 07:24] LABS: INR 2.8; PROTHROMBIN TIME (PATIENT) 30.7 SECONDS (9.6-11.5)
[2016-10-31 08:07] LABS: GLOM FILT RATE Estimated 64.3 mL/min (>60); MAGNESIUM 1.7 mg/dL (1.6-3.0); POTASSIUM 3.7 mmol/L (3.5-5.1)
[2016-11-01 06:05] LABS: INR 3.4; PROTHROMBIN TIME (PATIENT) 37.5 SECONDS (9.6-11.5)
[2016-11-01 06:51] LABS: BUN/CREATININE RATIO 6.36; CALCIUM SERUM 8.3 mg/dL (8.4-10.2); CREATININE SERUM 1.1 mg/dL (0.6-1.4); GLOM FILT RATE Estimated 57.3 mL/min (>60); POTASSIUM 3.8 mmol/L (3.5-5.1)
== END 2016-11-01 19:58 | DRG 252 ==
LOC: CED 11:21 → CEDOF 12:40 → C5C 19:44
PROVIDERS: Emergency Medicine; Family Medicine; Internal Medicine; Internal Medicine Cardiovascular Disease; Internal Medicine Gastroenterology; Internal Medicine Nephrology; Nurse Practitioner; Nurse Practitioner Family; Surgery; Surgery Vascular Surgery
PROC: 0DJD8ZZ Inspection of Lower Intestinal Tract, Via Natural or Artificial Opening Endoscopic (ICD-10-PCS; 2016-10-15)
PROC: 0DB78ZX Excision of Stomach, Pylorus, Via Natural or Artificial Opening Endoscopic, Diagnostic (ICD-10-PCS; principal; 2016-10-15 18:18)
PROC: B41DYZZ Fluoroscopy of Aorta and Bilateral Lower Extremity Arteries using Other Contrast (ICD-10-PCS; 2016-10-19)
PROC: 04CK0ZZ Extirpation of Matter from Right Femoral Artery, Open Approach (ICD-10-PCS; 2016-10-22)
PROC: 041K0JN Bypass Right Femoral Artery to Posterior Tibial Artery with Synthetic Substitute, Open Approach (ICD-10-PCS; 2016-10-22)
PROC: 041K0JM Bypass Right Femoral Artery to Peroneal Artery with Synthetic Substitute, Open Approach (ICD-10-PCS; 2016-10-22 07:30)
PROC: 0Y6P0Z1 Detachment at Right 1st Toe, High, Open Approach (ICD-10-PCS; 2016-10-26)
DX: E11.52 Type 2 diabetes mellitus with diabetic peripheral angiopathy with gangrene (principal); I50.33 Acute on chronic diastolic (congestive) heart failure; R57.1 Hypovolemic shock; N17.9 Acute kidney failure, unspecified; A41.9 Sepsis, unspecified organism; E44.0 Moderate protein-calorie malnutrition; I27.2 Other secondary pulmonary hypertension; E11.65 Type 2 diabetes mellitus with hyperglycemia; I48.91 Unspecified atrial fibrillation; E83.42 Hypomagnesemia; E87.1 Hypo-osmolality and hyponatremia; I11.0 Hypertensive heart disease with heart failure; T44.7X5A Adverse effect of beta-adrenoreceptor antagonists, initial encounter; Z86.73 Personal history of transient ischemic attack (TIA), and cerebral infarction without residual deficits; Z79.01 Long term (current) use of anticoagulants; Z79.82 Long term (current) use of aspirin; Z79.84 Long term (current) use of oral hypoglycemic drugs; E78.5 Hyperlipidemia, unspecified; Z91.040 Latex allergy status; E87.6 Hypokalemia; K29.00 Acute gastritis without bleeding; K29.80 Duodenitis without bleeding; I71.4 Abdominal aortic aneurysm, without rupture; Z68.30 Body mass index [BMI] 30.0-30.9, adult; E83.39 Other disorders of phosphorus metabolism; E66.9 Obesity, unspecified; R91.1 Solitary pulmonary nodule
CPT/HCPCS: 36415; 71010; 71020; 71250; 73630; 75625; 75710; 76770; 76937; 77001; 78452; 80048; 80053; 80076; 80202; 81003; 82274; 82533; 82550; 82553; 82565; 82570; 82607; 82728; 82746; 82810; 82947; 83036; 83540; 83550; 83605; 83735; 83930; 83935; 84100; 84132; 84300; 84443; 84484; 85025; 85027; 85347; 85610; 85730; 86850; 86900; 86901; 86923; 87040; 87070; 87077; 87186; 87205; 88305; 88311; 89190; 93005; 93017; 93306; 93922; 93923; 93926; 93978; 94760; 96361; 96374; 97110; 97116; 97162; 97164; 97166; 97168; 97530; 97535; 99285; A9500; C1725; C1751; C1760; C1769; C1887; C1894; G0365; G8978-GP; G8979-GP; G8980-GP; G8987-GO; G8988-GO; J0330; J0833; J1265; J1644; J1815; J1940; J2250; J2405; J2543; J2710; J2720; J2785; J3010; J3370; J3475; J3490; P9016; Q9967